=== PATIENT | female | born 1935 | race Caucasian/White ===

== ENCOUNTER 2019-11-16 22:49 | Inpatient (IN) | payer MEDICARE, SELFPAY ==
--- NOTE | ~2019-11-16 | US_ITS ---
EXAMINATION: US paracentesis abd w/image DATE: 11/20/2019 15:10 INDICATION: Ascites. TECHNIQUE: The procedure and its risks, benefits, and alternatives were discussed with the patient. P otential risks discussed included bleeding and infection. The skin was prepped and draped in sterile fashion. 1% lidocaine was used for local anesthesia. Under ultrasound guidance, a 5 Fr catheter with trochar was advanced into the ascites in the right lower quadrant. Fluid was aspirated. The catheter was removed, and a dressing was applied. There were no immediate complications. FINDINGS: Ultrasound images demonstrate ascites and the catheter within the fluid. IMPRESSION: 1. Successful ultrasound-guided paracentesis yielding 60 mL of clear, pale yellow fluid. Reviewed, dictated and finalized at location A. TENDER IMPRESSION: 1. Successful ultrasound-guided paracentesis yielding 60 mL of clear, pale yel low fluid.
--- NOTE | ~2019-11-16 | XR_ITS ---
XR chest 2V 11/16/2019 23:47 Indication: Postthoracentesis. Evaluate for pneumothorax. Procedure: AP and lateral views of the chest Comparison: Comparison to multiple prior studies sequentially, with oldest reviewed study dated 07/08. Findings: Persistent moderate right pleural effusion. Right basilar airspace disease. No pneumothorax . Cardiomegaly. Left lung clear. No acute osseous abnormality. Impression: 1: Moderate right pleural effusion without evidence for pneumothorax postthoracentesis. Reviewed, dictated and finalized at location A. EDO WORKER Impression: 1: Moderate right pleural effusion without evidence for pneumothorax postthorac entesis.
--- NOTE | ~2019-11-16 | US_ITS ---
EXAMINATION: US venous doppler LE EXAM DATE: 11/18/2019 13:47 INDICATION: Bilateral leg swelling. TECHNIQUE: Multiple grayscale, color flow and Doppler images of the lower extremity deep venous syste ms bilaterally were obtained and reviewed. Comparison is made to prior examination from 07/19/2016. FINDINGS: Right side: The right common femoral, femoral and profunda veins demonstrate normal color flow, respi ratory variation, augmentation and compressibility. Compressibility, color flow confirmed within the right popliteal, posterior tibial, peroneal, and greater saphenous veins. Left side: The left common femoral, femoral and profunda veins demonstrate normal color flow, respira tory variation, augmentation and compressibility. Compressibility, color flow confirmed within the l eft popliteal, posterior tibial, peroneal, and greater saphenous veins. IMPRESSION: 1. No lower extremity deep venous thrombosis bilaterally. Reviewed, dictated and finalized at location A. PROFESSIONAL
--- NOTE | ~2019-11-16 | US_ITS ---
EXAMINATION: US thoracentesis DATE: 11/19/2019 14:20 INDICATION: pleural effusion TECHNIQUE: The procedure and its risks, benefits, and alternatives were discussed with the patient. P otential risks discussed included bleeding, infection, and pneumothorax. The patient understood the r isks and agreed to proceed. The skin was prepped and draped in sterile fashion. 1% lidocaine was used for local anesthesia. Under ultrasound guidance, a 5 Fr catheter with trochar was advanced into the right pleural effusion. Fluid was aspirated. The catheter was removed, and a dressing was applied. Th ere were no immediate complications. FINDINGS: Ultrasound images demonstrate a right pleural effusion and the catheter within the fluid. IMPRESSION: 1. Successful ultrasound-guided thoracentesis yielding 1000 mL of yellow fluid. Reviewed, dictated and finalized at location A. D DANCE HALL IMPRESSION: 1. Successful ultrasound-guided thoracentesis yielding 1000 mL of yellow fluid .
--- NOTE | ~2019-11-16 | CT_ITS ---
EXAMINATION: CT brain wo con DATE: 11/16/2019 23:42 INDICATION: Status post all with head trauma. Headache. TECHNIQUE: Computed tomography (CT) of the head was performed without intravenous contrast. The dose- length product was 605.33 mGy-cm. The mA was adjusted according to patient size. Iterative reconstruc tion technique was employed. COMPARISON: No prior studies for comparison. FINDINGS: The limited by motion artifact. Mild generalized atrophy. There are scattered moderate david ventricular and subcortical white matter changes, most likely related to small vessel ischemic diseas e (microangiopathy). No ventriculomegaly or midline shift. Basilar cisterns are patent. There is intr acranial atherosclerosis. Probable chronic left lacunar infarction. Paranasal sinuses and mastoids ar e pneumatized. No depressed skull fractures. IMPRESSION: 1. No acute intracranial abnormality. Reviewed, dictated and finalized at location A. ONE BREAKER
--- NOTE | ~2019-11-16 | XR_ITS ---
EXAMINATION: XR lumbar spine 2-3V DATE: 11/20/2019 15:11 INDICATION: Low back pain. Fall. TECHNIQUE: 3 views of lumbar spine were obtained. COMPARISON: CT abdomen and pelvis 09/26/2018 FINDINGS: There is 6 degrees dextrocurvature of thoracolumbar spine. There is 3 mm anterolisthesis of L4 on L5. Vertebral body heights are normal. There is moderately decreased disc height at T12-L1, mi ldly decreased disc height at L3-L4 and L4-L5, and severely decreased disc height at L5-S1. There is multilevel facet joint osteoarthritis, severe bilaterally at L4-L5 and L5-S1. There is a filter in th e inferior vena cava. There are bilateral hip arthroplasties. IMPRESSION: 1. Severe lower lumbar spondylosis. Reviewed, dictated and finalized at location A. SHER AND BUFFER
--- NOTE | ~2019-11-16 | XR_ITS ---
EXAMINATION: XR chest 1V portable DATE: 11/20/2019 17:23 INDICATION: Shortness of breath. Hypoxia. TECHNIQUE: frontal view of the chest was obtained. COMPARISON: Chest radiograph dated 11/19/2019 FINDINGS: Is rotated towards the right. No significant interval change in opacification of the right mid and lo wer lung zones consistent with moderate to large right pleural effusion and associated compressive at electasis. Left lung remains clear. No pneumothorax, pulmonary edema or left-sided pleural effusion. Heart size is normal. Calcified mediastinal lymph nodes consistent with old granulomatous disease. At herosclerotic aorta. IVC filter projects along the right side of the mid lumbar spine. IMPRESSION: 1. No significant change in a moderate to large right pleural effusion with adjacent right basilar op acities, most likely atelectasis. Reviewed, dictated and finalized at location A. CE TECHNOLOGIST IMPRESSION: 1. No significant change in a moderate to large right pleural effusion with adj acent right basilar opacities, most likely atelectasis.
--- NOTE | ~2019-11-16 | XR_ITS ---
US thoracentesis, XR chest 2V EXAMINATION: US thoracentesis, XR chest 2V DATE: 11/17/2019 13:59 STARCHER AND TENTER RANGE FEEDER INDICATION: Right pleural effusion TECHNIQUE: Survey imaging of the right chest was performed. The procedure for ultrasound-guided thor acentesis and its risk and benefits were discussed with the patient. Risks included but were not limi connie to pain, bleeding, pneumothorax and infection. The patient verbalized understanding and provided written consent. A time-out was performed to document the patient's name, date of , and site of procedure. [facility] and draped in usual sterile fashion. 1% lidocaine was used for local anesthe [place]. Utilizing ultrasound guidance, a 5 Indonesian was advanced into pleural fluid. Aspiration was perf ormed. The patient tolerated procedure without immediate complication. Sterile bandages were applied over t he aspiration site(s).] FINDINGS: 1000 cc of debra-colored fluid obtained without complication. Post procedure chest x-ray de monstrates large right and small left pleural effusions. No evidence for pneumothorax. There is right -sided airspace consolidation, atelectasis versus pneumonia. IMPRESSION: 1. Successful ultrasound-guided right thoracentesis. 1000 cc of debra color fluid obtained without c omplication. 2: No pneumothorax identified post procedure. 3: Large right and small left pleural effusions. 4: Right-sided airspace consolidation, atelectasis versus pneumonia. Reviewed, dictated and finalized at location A. CHER AND TENTER RANGE FEEDER IMPRESSION: 1. Successful ultrasound-guided right thoracentesis. 1000 cc of debra color fl uid obtained without complication. 2: No pneumothorax identified post procedure. 3: Large right and small left pleural effusions. 4: Right-sided airspace consolidation, atelectasis versus pneumonia.
--- NOTE | ~2019-11-16 | CT_ITS ---
EXAMINATION: CT chest high resolution wo co DATE: 11/19/2019 14:01 INDICATION: persistent pleural effusion TECHNIQUE: Computed tomography (CT) of the chest was performed without intravenous contrast. Addition al 3D reconstructions utilizing coronal maximum intensity projection (MIP) were performed. Automated exposure control and iterative reconstruction technique were employed. The dose-length product was 18 4.88 mGy-cm. COMPARISON: 02/03/2017 FINDINGS: Moderate to large posteriorly layering right pleural effusion. There is partial collapse of the right middle and basilar right lower lobe with volume loss evidenced by crowded air bronchograms. Similar configuration of an additional bandlike region of atelectasis/scarring with volume loss and usability architect ural distortion within the anterior segment of the right upper lobe. Tiny left pleural effusion and m inimal lingular atelectasis. No pulmonary edema. Heart size is normal. Extensive atherosclerotic dorita nary artery calcifications. Aortic valve calcification. Additional atherosclerotic calcific changes a long the normal caliber thoracic aorta and great vessels arising from the arch. Several calcified med iastinal lymph nodes consistent with old granulomatous disease. No pathologically enlarged thoracic l ymphadenopathy. Nodular cirrhotic liver with moderate amount of ascites in the upper abdomen. Numerou s splenic calcifications consistent with old granulomatous disease. Multiple small calcified gallston es layering in the dependent aspect of the decompressed gallbladder. Mild upper to moderate lower tho racic spondylosis. IMPRESSION: 1. Moderate to large right and tiny left pleural effusions. 2. Partial collapse of the right middle and lower lobes and relatively stable appearance of a curved bandlike region of likely chronic atelectasis/scarring in the anterior segment of the right upper lob e. 3. Cirrhosis with moderate amount of ascites in the upper abdomen. 4. Cholelithiasis. Reviewed, dictated and finalized at location A. ISION MECHANIC IMPRESSION: 1. Moderate to large right and tiny left pleural effusions. 2. Partial collapse of the right middle and lower lobes and relatively stable a ppearance of a curved bandlike region of likely chronic atelectasis/scarring in the anterior segment of the right upper lobe. 3. Cirrhosis with moderate amount of ascites in the upper abdomen. 4. Cholelithiasis.
--- NOTE | ~2019-11-16 | XR_ITS ---
EXAMINATION: XR chest 2V DATE: 11/19/2019 14:06 INDICATION: Right pleural effusion status post thoracentesis. TECHNIQUE: Frontal and lateral views of the chest were obtained. COMPARISON: Chest single view 11/18/2019 FINDINGS: There is a moderate-sized right pleural effusion. There is a small left pleural effusion. T here are airspace opacities at right lung base. No pneumothorax. The heart size is normal. IMPRESSION: 1. Moderate-sized right pleural effusion with improvement status post thoracentesis. Small left pleur al effusion. 2. Airspace opacities at right lung base, likely atelectasis. Reviewed, dictated and finalized at location A. OMETRICS PROFESSOR IMPRESSION: 1. Moderate-sized right pleural effusion with improvement status post thoracent esis. Small left pleural effusion. 2. Airspace opacities at right lung base, likely atelectasis.
--- NOTE | ~2019-11-16 | XR_ITS ---
EXAMINATION: XR chest 1V portable EXAM DATE: 11/18/2019 09:14 INDICATION: Right pleural effusion. TECHNIQUE: Portable AP frontal chest x-ray was obtained. Comparison is made to prior examination from 11/17/2019. FINDINGS: There is large right pleural effusion with adjacent airspace disease, at least partly lower and middle lobe compressive atelectasis, collapse. Underlying pneumonia or cancer not excludable. Le ft lung is clear. No evidence of pneumothorax. Cardiomediastinal silhouette is normal. There is aorti c arterial sclerosis. The bones are osteopenic. There are bony degenerative changes. Compared to prior study from yesterday, pleural effusion has probably increased in size. IMPRESSION: 1. Large right pleural effusion, adjacent multilobar atelectasis. 2. Underlying pneumonia or cancer not excludable. Reviewed, dictated and finalized at location A. HEATER MECHANIC
--- NOTE | ~2019-11-16 | XR_ITS ---
XR pelvis 1-2V 11/16/2019 23:47 Indication: Status post fall. Low back pain. Procedure: AP view of the pelvis Comparison: Comparison to multiple prior studies sequentially, with oldest reviewed study dated 02/2012. Findings: Pelvic rings are intact. There are bilateral hip arthroplasties. There is an IVC filter par tially visualized. No acute fracture or traumatic malalignment. Impression: 1: No acute fracture. Reviewed, dictated and finalized at location A. CING ARTIST Impression: 1: No acute fracture.
[2019-11-16 22:41] VITALS: BP 161/74; PULSE 86; RESP 20; TEMP 36.8; O2SAT 87
[2019-11-16 22:46] VITALS: O2SAT 98
--- NOTE | 2019-11-16 23:14 | ED.FALL ---
HPI - Fall General Chief Complaint: Fall Stated Complaint: fall Time Seen by Provider: 11/16/19 23:02 Source: patient, RN notes reviewed and other (friend) Mode of arrival: EMS Limitations: no limitations History of Present Illness HPI Narrative: The pt is an 84 y/o female who presents to the ED, via EMS, with c/o a recent fall that occurred tonight. The pt states that she was taking her shirt off and fell backwards. She hit her bottom and the back of her head during the fall and states that she believes she lost her footing. Per friend, the pt fell the same way 10 days ago while walking from the kitchen to the bedroom. The pt reports buttocks pain, but denies dizziness, back pain, weakness, or SOB. Although she denies SOB, she notes that she has not been able to walk as much as nml because of her lungs. Per friend, the pt usually has a thoracentesis every 3 months for fluid build up. MD complaint: fall Onset (ago): hour(s) (occurred tonight) Fall from: standing Associated symptoms (after fall): other (buttocks pain) Related Data Home Medications Medication Instructions Recorded Confirmed aliskiren [Tekturna] 150 mg PO DAILY 11/16/19 11/17/19 atorvastatin 20 mg PO DAILY 11/16/19 11/17/19 diltiazem HCl 240 mg PO DAILY 11/16/19 11/17/19 famotidine 20 mg PO DAILY 11/16/19 11/17/19 insulin glargine [Basaglar KwikPen 10 unit SUBCUT HS 11/16/19 11/17/19 U-100 Insulin] levothyroxine 112 mcg PO DAILY 11/16/19 11/17/19 Calcium 500 1,000 mg PO DAILY 11/17/19 11/17/19 bromfenac [Prolensa] 0.07 % RIGHTEYE DAILY 11/17/19 11/17/19 cholecalciferol (vitamin D3) 2,000 unit PO DAILY 11/17/19 11/17/19 [Vitamin D3] fluoxetine 20 mg PO DAILY 11/17/19 11/17/19 furosemide 40 mg PO DAILY 11/17/19 11/17/19 loteprednol etabonate [Lotemax] 0.5 % RIGHTEYE TID 11/17/19 11/17/19 potassium chloride 20 meq PO DAILY 11/17/19 11/17/19 ranitidine HCl 150 mg PO BID 11/17/19 11/17/19 Allergies Allergy/AdvReac Type Severity Reaction Status Date / Time MARYSE Inhibitors Allergy Anaphylaxis Verified 11/16/19 22:54 codeine Allergy Rash Verified 11/16/19 22:54 Review of Systems Review of Systems: All systems reviewed & are unremarkable except as noted in HPI and below Constitutional: Constitutional: Denies weakness Respiratory: Respiratory: Denies dyspnea Musculoskeletal: Musculoskeletal: Denies back pain and Reports other (buttocks pain) Neurologic: Denies dizziness PMFSH Past Medical History Medical History A-fib CHF (congestive heart failure) Surgical History Surgical History No pertinent past surgical history Social History Social History Smoking status: Never smoker Second hand tobacco smoke exposure: No Alcohol intake: never Substance use: never Substance use type: does not use Gender identity (if verbalized by the patient): Female Spiritual care concerns: No Agree to blood products: No Exam Const: General: no acute distress and other (thin, frail, elderly) HENMT: Mouth: Yes lip normal and Yes moist mucous membranes Other: swelling and tenderness of posterior scalp Eyes: Conjunctivae: conjunctivae normal Pupils: Equal, round and reactive pupils present Resp: Effort & Inspection: normal respiratory effort Other: decreased breath sounds on rt side Cardio: Rate: regular rate Rhythm: regular rhythm GI: GI Palp: Yes Soft to palpation and No Tenderness to palpation present (GI) Auscultation: normal bowel sounds Back/Spine/Pelvis: Back: other (full ROM, no tenderness through spine) Skin: General skin exam: normal color, dry skin and other (warm) Neuro: General: patient oriented x3 Speech: normal speech Extrem: General: full ROM and edema (2+ pitting edema to BLE) Psych: Mental Status: mental status grossly normal Affect: normal affect Course Cons
--- NOTE | 2019-11-16 23:20 | ECG_ITS ---
Measurements Intervals [place] Rate: 81 P: MI: 0 QRS: 66 QRSD: 92 T: 120 QT: 368 QTc: 429 Interpretive Statements ATRIAL FIBRILLATION LOW QRS VOLTAGE IN LIMB LEADS CANNOT RULE OUT SEPTAL INFARCT, AGE INDETERMINATE NONSPECIFIC ST & T-WAVE ABNORMALITY- INF/LAT LEADS BASELINE ARTIFACT- I, III, AVR, AVL, AVF, V1, V3-V6 ABNORMAL ECG Electronically Signed On 11-17-2019 8:03:48 REPTILE KEEPER by Ariel Carrillo D.O.
[2019-11-16 23:32] LABS: Basophils Percent Auto 0.2 % (0.2-1.2); Eosinophils Absolute Auto 0.1 K/mm3 (0-0.3); Eosinophils Percent Auto 0.7 % (0-4.4); Hematocrit 38.7 % (37.0-47.0); Hemoglobin 11.8 g/dL (12.0-15.0); Immature Granulocyte Absolute 0.05 K/mm3 (0.00-0.031); Immature Granulocyte Percent A 0.6 % (0-0.5); Lymphocytes Absolute Auto 1.14 K/mm3 (0.9-3.2); Lymphocytes Percent Auto 12.9 % (18.3-44.2); Mean Corpuscular HGB Conc 30.5 g/dl (32-36); Mean Corpuscular Hemoglobin 29.9 pg (26-34); Mean Platelet Volume 11.4 fl (7.4-10.4); Monocytes Percent Auto 11.6 % (2.6-8.5); Neutrophils Absolute Auto 6.6 K/mm3 (1.3-6.7); Platelet Count Result 167 k/mm3 (150-375); Red Blood Count 3.95 M/mm3 (4.2-5.4); Red Cell Distribution Width 15.6 % (11.5-14.5); White Blood Count 8.9 K/mm3 (4.5-10.0)
[2019-11-16 23:47] LABS: Blood Urea Nitrogen 32 mg/dL (7-17); Calcium 9.1 mg/dL (8.4-10.2); Carbon Dioxide 28 mmol/L (22-30); Chloride 98 mmol/L (98-107); Estimated Glomerular Filt Rate 39; Glucose 209 mg/dL (65-105); Potassium 5.1 mmol/L (3.4-5.0); Sodium 137 mmol/L (137-145)
[2019-11-16 23:49] LABS: Prothrombin Time 12.6 Seconds (11.1-14.7)
[2019-11-16 23:50] LABS: Partial Thromboplastin Time 27.6 SECONDS (22.3-36.8)
[2019-11-16 23:58] LABS: NT Pro B Type Natriuretic Pept 881 PG/ML (5-100); Troponin I < 0.012 ng/mL (0.000-0.034)
[2019-11-17] VITALS (24 sets, daily range): BP systolic 102–178; BP diastolic 56–97; PULSE 72–102; RESP 16–30; TEMP 35.9–37.2; O2SAT 87–100; BMI 24.4
--- NOTE | 2019-11-17 02:01 | PC.NURSE ---
Patient's friend left efren Burnett [phone] Daughter (lives in [place]) [phone]
--- NOTE | 2019-11-17 02:14 | PC.NURSE ---
Addendum entered by REED Mckenna 11/17/19 02:19: Dr. Vann. explained to pt to not sit up on the side of bed without assistance or to get out of bed on her own, call light was placed on her lap. Original Note: pt called out stating she felt she was going to fall out of bed. Tech arrived to room with pt sitting up in bed with her legs dangling, pt stated the dr sat her up like that. pt placed fully back into the bed with side rails up.
--- NOTE | 2019-11-17 02:31 | PC.NURSE ---
Patient's daughter Bernardino notified of patient's transport to floor and room number 241.
--- NOTE | 2019-11-17 02:43 | PM.IMHP ---
H&P: HPI History of Present Illness Chief complaint: acute respiratory failure with hypoxia pleural eff Narrative: This is an 84-year-old diabetic female with known history of recurrent right-sided pleural effusions for which she obtains therapeutic thoracentesis every 3 months for the past year. She presented to the [facility] after suffering an acute fall at home tonight. The patient is known to live alone and states that she was getting changed for bed tonight when she lost her balance fell backwards and landed on her bottom. She did hit the back of her head on the ground but did not pass out. She sat on the floor and called her friend. They ended up calling EMS and she was brought to the hospital for evaluation. The patient herself is a very poor historian cannot tell me why she gets a therapeutic thoracentesis every 3 months. It appears that she has chronic anasarca for an unknown reason. The only thing she can tell me is that she know she sees a specialist at [facility] but cannot tell me what kind of specialist. She denies any history of previous cancer, liver disease, nephrotic syndrome, or previous kidney disorders. Patient knows that she is diabetic but she cannot tell me any other medical conditions that she is known to have. She denies any history of heart disease or strokes. The patient was evaluated emergency room this evening routine x-rays were obtained which were unremarkable for any acute fractures. Brain CT was obtained which was unremarkable for acute intracranial pathology. While in the emergency room the patient did desaturate down to 80% on room air and required oxygen supplementation. The patient tells me she was supposed to follow-up with a doctor whom she does not remember the name of tomorrow to evaluate her for another thoracentesis. We been asked to admit the patient to the hospital for her acute hypoxic respiratory failure. On further questioning the patient denies any headache, fevers, chills, sore throat, chest pain, abdominal pain, nausea, vomiting, dysuria, hematuria, rectal bleeding, diarrhea, or focal neurological symptoms. She does admit that she feels somewhat short of breath tonight. No other complaints. Review of Systems Review of Systems: All systems reviewed & are unremarkable except as noted in HPI and below [facility] Past Medical History Medical History (Updated 11/17/19 @ 15:54 by Ruthie Aguirre MD) A-fib Aplastic anemia Autoimmune hepatitis CHF (congestive heart failure) Chronic hypertension CKD (chronic kidney disease) stage 3, GFR 30-59 ml/min Diabetes mellitus History of DVT (deep vein thrombosis) Shortness of Breath Surgical History Surgical History No pertinent past surgical history Social History Social History Smoking status: Never smoker Second hand tobacco smoke exposure: No Alcohol intake: never Substance use: never Substance use type: does not use Gender identity (if verbalized by the patient): Female Spiritual care concerns: No Agree to blood products: No Meds Home Medications and Allergies Home Medications Medication Instructions Recorded Confirmed Type aliskiren [Tekturna] 150 mg PO DAILY 11/16/19 11/17/19 History atorvastatin 20 mg PO DAILY 11/16/19 11/17/19 History diltiazem HCl 240 mg PO DAILY 11/16/19 11/17/19 History famotidine 20 mg PO DAILY 11/16/19 11/17/19 History insulin glargine [Basaglar KwikPen 10 unit SUBCUT HS 11/16/19 11/17/19 History U-100 Insulin] levothyroxine 112 mcg PO DAILY 11/16/19 11/17/19 History Calcium 500 1,000 mg PO DAILY 11/17/19 11/17/19 History bromfenac [Prolensa] 1 drp RIGHTEYE DAILY 11/17/19 11/17/19 History cholecalciferol (vitamin D3) 2,000 unit PO DAILY 11/17/19 11/17/19 History [Vitamin D3] fluoxetine 20 mg PO DAILY 11/17/19 11/17/19 History furosemide 40 mg PO DAILY
--- NOTE | 2019-11-17 03:06 | ADMGEN ---
This patient, Coleen Wu, was admitted to 2 Medical Room 241-. Patient/family oriented to hospital policies and general routines including ID bracelet, bed and alarms, visiting hours, pain management, procedures, bathroom and other care routines, personal items, smoking policy, room service/diet, and visiting hours. Valuables list has been completed. Information on how to activate the Rapid Response Team has been discussed. Patient/Family are encouraged to report perceived risks to care and to ask questions if they do not understand what they are told or what they should do.
[2019-11-17 05:55] LABS: Basophils Percent Auto 0.1 % (0.2-1.2); Eosinophils Percent Auto 0.3 % (0-4.4); Hematocrit 32.3 % (37.0-47.0); Hemoglobin 9.9 g/dL (12.0-15.0); Immature Granulocyte Absolute 0.04 K/mm3 (0.00-0.031); Immature Granulocyte Percent A 0.6 % (0-0.5); Lymphocytes Absolute Auto 0.39 K/mm3 (0.9-3.2); Lymphocytes Percent Auto 5.5 % (18.3-44.2); Mean Corpuscular HGB Conc 30.7 g/dl (32-36); Mean Corpuscular Hemoglobin 30.1 pg (26-34); Mean Corpuscular Volume 98.2 fl (80-100); Mean Platelet Volume 11.9 fl (7.4-10.4); Monocytes Absolute Auto 0.9 K/mm3 (0.1-0.6); Monocytes Percent Auto 12.1 % (2.6-8.5); Neutrophils Absolute Auto 5.8 K/mm3 (1.3-6.7); Neutrophils Percent Auto 81.4 % (45.5-73.1); Platelet Count Result 97 k/mm3 (150-375); Red Blood Count 3.29 M/mm3 (4.2-5.4); Red Cell Distribution Width 15.5 % (11.5-14.5); White Blood Count 7.1 K/mm3 (4.5-10.0)
[2019-11-17] MEDS: LEVOTHYROXINE SODIUM 112 MCG TABLET PO (06:11)
[2019-11-17 06:23] LABS: Blood Urea Nitrogen 28 mg/dL (7-17); Calcium 8.4 mg/dL (8.4-10.2); Carbon Dioxide 27 mmol/L (22-30); Chloride 100 mmol/L (98-107); Estimated CRCL calculation 27 ml/min; Estimated Glomerular Filt Rate 47; Glucose 178 mg/dL (65-105); Magnesium 1.9 mg/dL (1.6-2.3); Potassium 4.4 mmol/L (3.4-5.0); Sodium 136 mmol/L (137-145)
[2019-11-17] MEDS: LORAZEPAM INJ 2 MG/ML VIAL 0.5 MG IV PUSH (06:34)
--- NOTE | 2019-11-17 07:17 | PC.NURSE ---
pt transferred to IMU per Getin orders
--- NOTE | 2019-11-17 08:01 | PC.NURSE ---
Patient admitted to [facility]- from room 241 at 0703.
[2019-11-17 08:02] LABS: Base Excess ABG -0.6 mEq/l (+/-2.0); Fractional Inspired Oxygen 50 %; HCO3 ABG 23.6 mEq/l (22.0-26.0); Oxygen Content ABG 14.8 %vol (16.0-22.0); Oxygen Saturation ABG 98.8 % (95.0-100.0); Oxyhemoglobin 97.2 % THb (90.0-100.0); PCO2 ABG 37.2 mmHg (35.0-45.0); PO2 ABG 136.7 mmHg (80.0-100.0); PO2 FiO2 Ratio Arterial Blood 2.73 %; Total Hemoglobin 10.6 g/dL (12.0-18.0); pH ABG 7.421 (7.350-7.450)
[2019-11-17 08:03] LABS: Device NON-INVASIVE VENT
[2019-11-17 08:04] LABS: Non-Invasive Expiratory Pressure 6 CMH2O; Non-Invasive Inspiratory Pressure 12 CMH2O; Non-Invasive Vent Rate 14 /MIN; Site Drawn RIGHT RADIAL
[2019-11-17 08:17] LABS: Lactate Dehydrogenase 548 U/L (313-618)
[2019-11-17 08:24] LABS: Glucose Point of Care 162 (65-105)
--- NOTE | 2019-11-17 09:19 | PM.IMPN ---
Progress Note: A&P Assessment and Plan (1) Acute respiratory failure with hypoxia: Code(s): J96.01 - Acute respiratory failure with hypoxia Status: Acute Assessment and Plan: [place] to be secondary to large right-sided pleural effusion BiPAP for comfort for today but can be off BiPAP during the day with supplemental O2 as needed to keep O2 saturations > 94%. Continuous pulse ox. (2) Pleural effusion, right: Code(s): J90 - Pleural effusion, not elsewhere classified Status: Acute Assessment and Plan: Recurring pleural effusion likely transudative secondary to autoimmune hepatitis, CHF. Patient reports she gets thoracenteses every [address] Vann at [facility] but she cannot confirm this for me this morning. She is unsure of the specialist she sees there but stated she had a follow up appointment soon. Edit: On further review, it appears the last several thoracentesis orders are from Dr Aguirre's office. Notified Dr Aguirre of patient's admission. Last taps were 06/2019; 02/2019; 11/2018 last year, each yielding about a 1L yellow fluid. (3) CKD (chronic kidney disease) stage 3, GFR 30-59 ml/min: Code(s): N18.3 - Chronic kidney disease, stage 3 (moderate) Status: Acute Assessment and Plan: Stable based on review of old labs. Baseline Cr appears about 1.2-1.5. Will resume home lasix after thoracentesis. (4) Autoimmune hepatitis: Code(s): K75.4 - Autoimmune hepatitis Status: Acute Assessment and Plan: With esophageal varices for which she has followed with Dr Martin in the past. (5) Anemia: Qualifiers: Anemia type: unspecified type Qualified Code(s): D64.9 - Anemia, unspecified Code(s): D64.9 - Anemia, unspecified Status: Acute Assessment and Plan: History of aplastic anemia with pancytopenia and records show she has been previously followed at [facility] for this. Monitor CBC. (6) History of DVT (deep vein thrombosis): Code(s): Z86.718 - Personal history of other venous thrombosis and embolism Status: Acute Assessment and Plan: PE and DVTs in July 2016; not anticoagulated due to thrombocytopenia and aplastic anemia. Has IVC filter. IVC filter may be the cause of her LE edema? (7) Diabetes mellitus: Qualifiers: Diabetes mellitus complication status: without complication Diabetes mellitus senior care insulin use: with senior care use Diabetes mellitus type: type 2 Qualified Code(s): E11.9 - Type 2 diabetes mellitus without complications; Z79.4 - half-way (current) use of insulin Code(s): E11.9 - Type 2 diabetes mellitus without complications Status: Chronic Assessment and Plan: Blood sugars stable. Continue lantus and cover with SSI. Continue to monitor with accu-cheks and adjust treatment if needed. (8) A-fib: Qualifiers: Atrial fibrillation type: unspecified Qualified Code(s): I48.91 - Unspecified atrial fibrillation Code(s): I48.91 - Unspecified atrial fibrillation Status: Chronic Assessment and Plan: Rate controlled, continue home diltiazem. IVC filter; not on intermission coordinator anticoagulation due to thrombocytopenia. (9) Chronic hypertension: Code(s): I10 - Essential (primary) hypertension Status: Chronic Assessment and Plan: Elevated on arrival but improved this morning. Resume home antihypertensives and monitor BP. (10) CHF (congestive heart failure): Qualifiers: Heart failure chronicity: unspecified Heart failure type: unspecified Qualified Code(s): I50.9 - Heart failure, unspecified Code(s): I50.9 - Heart failure, unspecified Status: Chron
[2019-11-17] MEDS: FUROSEMIDE INJ 40 MG/4 ML VIAL 20 MG IV PUSH (11:14)
--- NOTE | 2019-11-17 11:29 | PHAR ---
HOME MED VERIFICATION PROLENSA- BROMFENAC 0.07% IN COPY LATHE TENDER BOTTLE, OK TO USE
[2019-11-17 12:49] LABS: Glucose Point of Care 130 (65-105)
[2019-11-17 14:28] LABS: pH Pleural Fluid 7.463 (7.210-7.500)
--- NOTE | 2019-11-17 14:33 | PM.PNPUL ---
Subjective Date/time seen: 11/17/19 14:33 Objective Data Vital Signs Vital Signs: Vital Signs - 24 hr 11/16/19 22:41 11/16/19 22:46 11/17/19 00:20 Temperature 36.8 C Pulse Rate 86 89 Respiratory Rate 20 18 Blood Pressure 161/74 H Pulse Oximetry 87 L 98 87 L 11/17/19 00:32 11/17/19 02:08 11/17/19 02:29 Temperature Pulse Rate 85 83 Respiratory Rate 20 18 Blood Pressure 160/72 H 156/77 H Pulse Oximetry 98 97 97 11/17/19 02:43 11/17/19 02:49 11/17/19 04:00 Temperature 37.2 C Pulse Rate 95 95 80 Respiratory Rate 20 22 H Blood Pressure 163/72 H Pulse Oximetry 95 95 11/17/19 06:00 11/17/19 06:19 11/17/19 06:39 Temperature 37.1 C 36.2 C L Pulse Rate 82 102 H 96 Respiratory Rate 20 28 H 20 Blood Pressure 133/66 178/97 H Pulse Oximetry 97 88 L 99 11/17/19 07:05 11/17/19 08:00 11/17/19 10:00 Temperature 35.9 C L Pulse Rate 88 79 79 Respiratory Rate 19 Blood Pressure 140/78 Pulse Oximetry 98 11/17/19 10:45 11/17/19 12:00 11/17/19 12:28 Temperature 36.6 C Pulse Rate 83 87 84 Respiratory Rate 17 20 Blood Pressure 139/71 Pulse Oximetry 100 98 11/17/19 13:53 11/17/19 13:54 Temperature Pulse Rate 86 90 Respiratory Rate 30 H 24 H Blood Pressure 153/83 H 157/85 H Pulse Oximetry 95 93 Intake/Output Intake/Output: Intake & Output 11/14/19 11/15/19 11/16/19 11/17/19 23:59 23:59 23:59 23:59 Intake Total 200 Output Total 1700 Balance -1500 Meds/Results Medications: Active Medications Generic Name Dose Route Start Last Admin Trade Name Freq PRN Reason Stop Dose Admin Acetaminophen 650 mg 11/17/19 02:42 Tylenol Tablet PO Q4H PRN Mild Pain (1-3) or Fever Aliskiren 150 mg 11/17/19 09:00 11/17/19 08:59 Tekturna PO Not Given DAILY [facility] Atorvastatin Calcium 20 mg 11/17/19 09:00 11/17/19 08:59 Lipitor PO Not Given DAILY [facility] Calcium Carbonate 1,000 mg 11/17/19 09:00 11/17/19 08:59 Oscal 500 Mg PO Not Given DAILY [facility] Dextrose 12.5 gm 11/17/19 02:41 Dextrose 50% Syringe IV PUSH PRN PRN Hypoglycemia Protocol Diltiazem HCl 240 mg 11/17/19 09:00 11/17/19 11:11 Cardizem Cd PO 240 mg DAILY [facility] Administration Enoxaparin Sodium 40 mg 11/17/19 09:00 11/17/19 08:59 Lovenox SUB-Q Not Given DAILY [facility] Famotidine 20 mg 11/17/19 09:00 11/17/19 09:00 Pepcid PO Not Given DAILY [facility] Fluoxetine HCl 20 mg 11/17/19 09:00 11/17/19 09:00 Prozac PO Not Given DAILY [facility] Glucagon 1 mg 11/17/19 02:41 Glucagon For Inj IM PRN PRN Hypoglycemia Protocol Glucose 15 gm 11/17/19 02:41 Glutose 15 PO PRN PRN Hypoglycemia Protocol Dextrose 1,000 mls @ 100 mls/hr 11/17/19 02:41 Dextrose 5% 1,000 Ml IVPB PRN PRN Hypoglycemia Protocol Insulin Aspart 3 - 6 units 11/17/19 08:00 11/17/19 13:33 Novolog SUB-Q Not Given TIDWM [facility] Protocol Insulin Glargine 10 units 11/17/19 21:00 Lantus SUB-Q [facility] Levothyroxine Sodium 112 mcg 11/17/19 06:30 11/17/19 06:11 Synthroid PO 112 mcg DAILY@0630 [facility] Administration Loteprednol Etabonate 1 drop 11/17/19 13:00 11/17/19 13:34 Lotemax RIGHT EYE Not Given TID [facility] Vitamin D 2,000 unit 11/17/19 09:00 11/17/19 08:59 Vitamin D PO Not Given DAILY [facility] Radiology Results: ITS Impressions Pelvis X-Ray 11/17/19 08:43 Impression: 1: No acute fracture. Head CT 11/17/19 09:33 IMPRESSION: 1. No acute intracranial abnormality. Chest X-Ray 11/17/19 13:59 IMPRESSION: 1. Successful ultrasound-guided right thoracentesis. 1000 cc of debra color fluid obtained without complication. 2: No pneumothorax identified post procedure. 3: Large right and small left pleural effusions. 4: Right-sided airspace consolidation, atelectasis versus pneumonia. Thoracentesis Ultrasound
--- NOTE | 2019-11-17 14:33 | PM.CNPUL ---
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 She is followed by EUFEMIA Diaz, for this. The pH is now normal. Cell counts are pending. She may have a traumatic effusion due to two falls. She is oxygenating adequately on 3 L/min. Deb has a history of CHF with preserved EF, has chronic leg swelling which she says is stable. Her left calf is 3 inches larger which she says is normal for her. ( Lainey thinks her leg looks worse today.) , BNP was not elevated for age only 89. She does not appear to be having CHf exacerbation. Will wait for the remainder of the labs on the pleural fluid. (2) Acute respiratory failure with hypoxia: Code(s): J96.01 - Acute respiratory failure with hypoxia Status: Acute Assessment and Plan: She has not required O2 at home. She has been tested with a 6 minute walk and overnight oximetry with low saturation but not low enough to have O2 prescribed. Now is on 3 L/min, sat 93%, which is expected to improve as the effusion 1 L removed and atelectasis improves. (3) History of DVT (deep vein thrombosis): Code(s): Z86.718 - Personal history of other venous thrombosis and embolism Status: Acute Assessment and Plan: Her calves are swollen, left several inches larger than right. Will check lower extremity dopplers to assure that she does not have DVTs now. 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 She sees EUFEMIA Diaz. She has not had any specific treatment for this. (5) Shortness of Breath: Code(s): R06.02 - Shortness of breath Status: Acute Assessment and Plan: She is less short of breath since 1 L thoracentesis Right side today, not back to baseline. Her shortness of breath is worse with exertion, worsens when effusion worsens. History of Present Illness History of Present Illness Consult date: 11/17/19 Requesting physician: Melissa Morse PA-C Reason for consult: pleural effusion Chief complaint: acute respiratory failure with hypoxia pleural eff Narrative: Coleen Wu is an 84 yo female who we follow in pulmonary clinic for a recurrent right pleural effusion due to autoimmune hepatitis with cirrhosis. She as a history of CKD, atrial fib not on anticoagulants, HTN, CHF with preserved EF, aplastic anemia which is stable. Her friend Lainey is at the bedside. Her pleural fluid has always been consistent with a transudate. She has had multiple thoracenteses in the past. She fell while she was taking off a shirt, landed backwards on her buttocks, hitting the back of her head without loss of consciousness. She came to the ER by ambulance for evaluation. Her CXR showed a large right pleural effusion which was tapped today with 1 liter of fluid removed. The pH is 7.46, remainder of the labs are pending. She does not use O2 at home, now is on nasal cannula @ 3 L/min with saturation 93%. She desaturated in the ER to 80% on room air, and O2 was started. She has had borderline low O2 saturation in the past, has not met criteria to have O2 in the home. The patient had a similar incident a few weeks ago falling to the ground.She has ecchymoses on the left posterior thigh and calf from the prior fall. She lives alone. She did not lose consciousness.
[2019-11-17 16:53] LABS: Appearance Pleural Fluid Hazy (Clear); Color Pleural Fluid Yellow (Colorless); Lymphocytes Pleural Fluid 40 %; Monocytes Pleural Fluid 24 %; Neutrophils Pleural Fluid 8 % (0-25); Nucleated Cell Pleural Fluid 98 /uL (0-1000); Pleural fluid source Pleural fluid; RBC Pleural Fluid 163 /uL (0-0)
[2019-11-17 16:54] LABS: Macrophages Pleural Fluid 28 %
[2019-11-17 18:18] LABS: Glucose Point of Care 199 (65-105)
[2019-11-17] MEDS: INSULIN GLARGINE (*BKC) 100 UNITS/ML 10 UNITS SUB-Q (20:21)
[2019-11-17 20:22] LABS: Glucose Point of Care 186 (65-105)
[2019-11-18] VITALS (15 sets, daily range): BP systolic 105–158; BP diastolic 60–77; PULSE 64–84; RESP 16–22; TEMP 36.1–36.7; O2SAT 92–99
[2019-11-18] MEDS: LEVOTHYROXINE SODIUM 112 MCG TABLET PO (05:13)
[2019-11-18 06:58] LABS: Basophils Percent Auto 0.3 % (0.2-1.2); Eosinophils Absolute Auto 0.1 K/mm3 (0-0.3); Hematocrit 39.2 % (37.0-47.0); Hemoglobin 11.8 g/dL (12.0-15.0); Immature Granulocyte Absolute 0.03 K/mm3 (0.00-0.031); Immature Granulocyte Percent A 0.4 % (0-0.5); Lymphocytes Absolute Auto 1.14 K/mm3 (0.9-3.2); Lymphocytes Percent Auto 16.5 % (18.3-44.2); Mean Corpuscular HGB Conc 30.1 g/dl (32-36); Mean Corpuscular Hemoglobin 30.4 pg (26-34); Mean Platelet Volume 12.1 fl (7.4-10.4); Monocytes Absolute Auto 0.8 K/mm3 (0.1-0.6); Monocytes Percent Auto 11.7 % (2.6-8.5); Neutrophils Absolute Auto 4.9 K/mm3 (1.3-6.7); Neutrophils Percent Auto 70.1 % (45.5-73.1); Platelet Count Result 101 k/mm3 (150-375); Red Blood Count 3.88 M/mm3 (4.2-5.4); Red Cell Distribution Width 15.5 % (11.5-14.5); White Blood Count 6.9 K/mm3 (4.5-10.0)
[2019-11-18 07:17] LABS: Albumin Level 3.6 g/dL (3.5-5.1); Blood Urea Nitrogen 21 mg/dL (7-17); Calcium 8.8 mg/dL (8.4-10.2); Carbon Dioxide 24 mmol/L (22-30); Chloride 100 mmol/L (98-107); Estimated CRCL calculation 37 ml/min; Estimated Glomerular Filt Rate > 60; Glucose 116 mg/dL (65-105); Phosphorus 3.6 mg/dL (2.5-4.5); Potassium 4.3 mmol/L (3.4-5.0); Sodium 135 mmol/L (137-145)
[2019-11-18 08:54] LABS: Glucose Point of Care 122 (65-105)
[2019-11-18] MEDS: CHOLECALCIFEROL 1,000 UNIT TABLET 2000 UNITS PO (09:52)
[2019-11-18] MEDS: ENOXAPARIN 40 MG/0.4 ML SYRINGE SUB-Q (09:52)
[2019-11-18] MEDS: FAMOTIDINE 20 MG TABLET PO (09:52)
[2019-11-18] MEDS: CALCIUM CARBONATE (OSCAL) 500 MG TABLET 1000 MG PO (09:53)
[2019-11-18] MEDS: FLUOXETINE HCL 20 MG CAP PO (09:53)
[2019-11-18] MEDS: ATORVASTATIN 20 MG TABLET PO (09:53)
--- NOTE | 2019-11-18 10:51 | PHAR ---
Home medication Tekturna 150mg tablets identified and returned to IMU nursing unit
[2019-11-18] MEDS: LOTEPREDNOL ETABONATE 0.5% OPH 5 ML BOTTLE 1 DROP RIGHT EYE ×2 (12:42→16:40)
[2019-11-18] MEDS: ACETAMINOPHEN 325 MG TABLET 650 MG PO (12:47)
--- NOTE | 2019-11-18 12:51 | PM.IMPN ---
Progress Note: A&P Assessment and Plan (1) Acute respiratory failure with hypoxia: Code(s): J96.01 - Acute respiratory failure with hypoxia Status: Acute Assessment and Plan: [place] to be secondary to large right-sided pleural effusion Off BiPAP now and comfortably tolerating room air. Transfer out of IMU. Can use BiPAP at night for comfort if needed. Continue supplemental O2 as needed and wean to keep O2 saturations > 94%. (2) Pleural effusion, right: Code(s): J90 - Pleural effusion, not elsewhere classified Status: Acute Assessment and Plan: Recurring pleural effusion likely transudative secondary to autoimmune hepatitis, CHF, CKD. She gets therapeutic thoracenteses every few months with Dr Aguirre. Thoracentesis 11/17/19 yielded 1 L hazy yellow fluid, pleural pH is normal. (3) CKD (chronic kidney disease) stage 3, GFR 30-59 ml/min: Code(s): N18.3 - Chronic kidney disease, stage 3 (moderate) Status: Acute Assessment and Plan: Stable based on review of old labs. Baseline Cr appears about 1.2-1.5. Monitor renal function. (4) Autoimmune hepatitis: Code(s): K75.4 - Autoimmune hepatitis Status: Acute Assessment and Plan: With esophageal varices for which she has followed with Dr Martin in the past. Likely contributes to above. (5) Anemia: Qualifiers: Anemia type: unspecified type Qualified Code(s): D64.9 - Anemia, unspecified Code(s): D64.9 - Anemia, unspecified Status: Acute Assessment and Plan: History of aplastic anemia with pancytopenia and records show she has been previously followed at [facility] for this. Monitor CBC. (6) History of DVT (deep vein thrombosis): Code(s): Z86.718 - Personal history of other venous thrombosis and embolism Status: Acute Assessment and Plan: PE and DVTs in July 2016; not anticoagulated due to thrombocytopenia and aplastic anemia. Has IVC filter. IVC filter may be the cause of her LE edema? US venous Dopplers ordered. (7) Diabetes mellitus: Qualifiers: Diabetes mellitus complication status: without complication Diabetes mellitus intermodal truck driver insulin use: with custodial use Diabetes mellitus type: type 2 Qualified Code(s): E11.9 - Type 2 diabetes mellitus without complications; Z79.4 - emt intermediate (current) use of insulin Code(s): E11.9 - Type 2 diabetes mellitus without complications Status: Chronic Assessment and Plan: Blood sugars stable. Continue lantus and cover with SSI. Continue to monitor with accu-cheks and adjust treatment if needed. (8) A-fib: Qualifiers: Atrial fibrillation type: unspecified Qualified Code(s): I48.91 - Unspecified atrial fibrillation Code(s): I48.91 - Unspecified atrial fibrillation Status: Chronic Assessment and Plan: Rate controlled, continue home diltiazem. IVC filter; not on intermodal truck driver anticoagulation due to thrombocytopenia. (9) Chronic hypertension: Code(s): I10 - Essential (primary) hypertension Status: Chronic Assessment and Plan: Blood pressures have been variable. Continue home antihypertensives and monitor BP. (10) CHF (congestive heart failure): Qualifiers: Heart failure chronicity: unspecified Heart failure type: unspecified Qualified Code(s): I50.9 - Heart failure, unspecified Code(s): I50.9 - Heart failure, unspecified Status: Chronic Assessment and Plan: Chronic, diastolic. Continue lasix and tekturna. History of angioedma from ACEI. Monitor fluid status with I&Os and daily weights. (11) DVT prophylaxis: Code(
[2019-11-18 13:32] LABS: Glucose Point of Care 163 (65-105)
[2019-11-18 16:40] LABS: Glucose Point of Care 168 (65-105)
[2019-11-18] MEDS: POTASSIUM CHLORIDE 10 MEQ TABLET.ER 20 MEQ PO (16:41)
[2019-11-18] MEDS: FUROSEMIDE 40 MG TABLET PO (16:50)
--- NOTE | 2019-11-18 17:58 | PM.PNPUL ---
Progress Note: A&P Assessment and Plan (1) Pleural effusion, right: Code(s): J90 - Pleural effusion, not elsewhere classified Status: Acute Assessment and Plan: She has had recurrent pleural effusion in the right due to autoimmune hepatitis with cirrhosis. She is followed by EUFEMIA Diaz, for this. The pH is now normal. Small elevation in rbc count. She is oxygenating adequately on 2 L/min. Has hx CHF with preserved EF, has chronic leg swelling which she says is stable. BNP was not elevated for age only 89. She does not appear to be having CHf exacerbation. Will wait for the remainder of the labs on the pleural fluid. (2) Acute respiratory failure with hypoxia: Code(s): J96.01 - Acute respiratory failure with hypoxia Status: Acute Assessment and Plan: She has not required O2 at home. She has been tested with a 6 minute walk and overnight oximetry with low saturation but not low enough to have O2 prescribed. Now is on 3 L/min, sat 93%, which is expected to improve as the effusion 1 L removed and atelectasis improves. (3) History of DVT (deep vein thrombosis): Code(s): Z86.718 - Personal history of other venous thrombosis and embolism Status: Acute Assessment and Plan: Her calves are swollen, left several inches larger than right. Nov 18- negative LE dopplers. 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 She sees EUFEMIA Diaz. She has not had any specific treatment for this. (5) Shortness of Breath: Code(s): R06.02 - Shortness of breath Status: Acute Assessment and Plan: She is less short of breath since 1 L thoracentesis Right side Feb 2; not back to baseline. Her shortness of breath is worse with exertion, worsens when effusion increases. Subjective Date/time seen: 11/18/19 17:58 Coleen Wu is an 84 yo female followed in our pulmonary clinic for a recurrent right pleural effusion due to autoimmune hepatitis with cirrhosis. She as a history of CKD, atrial fib not on anticoagulants, HTN, CHF with preserved EF, aplastic anemia which is stable. Her pleural fluid has always been consistent with a transudate. She has had multiple thoracenteses in the past. She is better and is moving to 3rd floor today. Admitted Feb 2 - fell, landed backwards on her buttocks, hit back of head; CXR large R pleural effusion Feb 2; 1 L with pH 7.46. She does not use O2 at home, now is on nasal cannula @ 2 L/min with saturation 93%. On admission, had low sat in ER to 80% on room air, and O2 was started. She has had borderline low O2 saturation in the past, has not met criteria to have O2 in the home. Feb 3 - LE dopplers (-) for DVT in legs The patient had a similar incident a few weeks ago falling to the ground.She has ecchymoses on the left posterior thigh and calf from the prior fall. She lives alone. She did not lose consciousness. Review of Systems Cardiovascular: Cardiovascular: Reports no additional cardiovascular complaints, Reports leg edema (this is chronic, unchanged.) and Reports dyspnea Respiratory: Respiratory: Reports dyspnea Exam Narrative: Exam Narrative: Alert, pleasant, poor memory. Const: General: cooperative HENMT: Head: normal to inspection (She complains of pain on back of head; scalp is atraumatic.) Ears: hearing grossly normal bilaterally General nose exam: Normal external nose present Neck: Neck: trachea midline Chest: Chest palpation & inspection: normal
--- NOTE | 2019-11-18 19:05 | PC.NURSE ---
This patient, Coleen Wu, was transferred to [facility] on 11/18/19 at 1910. Personal belongings sent with patient. Report given to 3rd med/surgery aide. Appropriate documentation sent with patient.
[2019-11-18] MEDS: INSULIN GLARGINE (*BKC) 100 UNITS/ML 10 UNITS SUB-Q (20:37)
[2019-11-18 20:51] LABS: Glucose Point of Care 192 (65-105)
[2019-11-19] VITALS (12 sets, daily range): BP systolic 100–167; BP diastolic 55–73; PULSE 61–83; RESP 14–22; TEMP 36.5–37.2; O2SAT 90–100
[2019-11-19 06:17] LABS: Hematocrit 33.5 % (37.0-47.0); Hemoglobin 10.5 g/dL (12.0-15.0); Immature Platelet Fraction Pct 5.1 % (0.9-11.2); Mean Corpuscular HGB Conc 31.3 g/dl (32-36); Mean Corpuscular Hemoglobin 30.2 pg (26-34); Mean Corpuscular Volume 96.3 fl (80-100); Platelet Count Result 97 k/mm3 (150-375); Red Blood Count 3.48 M/mm3 (4.2-5.4); Red Cell Distribution Width 15.1 % (11.5-14.5); White Blood Count 4.5 K/mm3 (4.5-10.0)
[2019-11-19 06:26] LABS: Blood Urea Nitrogen 22 mg/dL (7-17); Calcium 8.5 mg/dL (8.4-10.2); Carbon Dioxide 32 mmol/L (22-30); Chloride 102 mmol/L (98-107); Estimated CRCL calculation 27 ml/min; Estimated Glomerular Filt Rate 47; Glucose 75 mg/dL (65-105); Potassium 3.8 mmol/L (3.4-5.0); Sodium 140 mmol/L (137-145)
[2019-11-19] MEDS: LEVOTHYROXINE SODIUM 112 MCG TABLET PO (06:47)
[2019-11-19] MEDS: ATORVASTATIN 20 MG TABLET PO (09:58)
[2019-11-19] MEDS: FAMOTIDINE 20 MG TABLET PO (10:09)
[2019-11-19] MEDS: CALCIUM CARBONATE (OSCAL) 500 MG TABLET 1000 MG PO (10:10)
[2019-11-19] MEDS: ENOXAPARIN 40 MG/0.4 ML SYRINGE SUB-Q (10:10)
[2019-11-19] MEDS: POTASSIUM CHLORIDE 10 MEQ TABLET.ER 20 MEQ PO (10:11)
[2019-11-19] MEDS: CHOLECALCIFEROL 1,000 UNIT TABLET 2000 UNITS PO (10:11)
[2019-11-19] MEDS: LOTEPREDNOL ETABONATE 0.5% OPH 5 ML BOTTLE 1 DROP RIGHT EYE ×3 (10:12→16:49)
[2019-11-19] MEDS: FLUOXETINE HCL 20 MG CAP PO (10:14)
[2019-11-19] MEDS: FUROSEMIDE 40 MG TABLET PO (10:15)
[2019-11-19 11:39] LABS: Lactate Dehydrogenase 661 U/L (313-618)
--- NOTE | 2019-11-19 12:40 | PM.IMPN ---
Progress Note: A&P Assessment and Plan (1) Acute respiratory failure with hypoxia: Code(s): J96.01 - Acute respiratory failure with hypoxia Status: Acute Assessment and Plan: -----continue to wean oxygen as tolerated tolerated. Patient has not had any hypoxia with the oxygen. She walked the halls and did not feel short of breath today. They got 1000ml with her thoracentesis /. I spoke with Dr. Aguirre and we are going to do another thoracentesis today since she still has a large pleural effusion. We will also do a CT of the chest to ensure no etiology can be found. (2) Pleural effusion, right: Code(s): J90 - Pleural effusion, not elsewhere classified Status: Acute Assessment and Plan: -----see above. Thoracentesis planned for today. CT of the chest also ordered. Patient sees Dr. Aguirre. Still waiting on some labs but thought to be due to her cirrhosis. LDH and protein pending. Cytology pending. G stain had few white blood cells and no organisms. (3) Diabetes mellitus: Qualifiers: Diabetes mellitus type: type 2 Diabetes mellitus intermodal customer service insulin use: with intermodal customer service use Diabetes mellitus complication status: without complication Qualified Code(s): E11.9 - Type 2 diabetes mellitus without complications; Z79.4 - FDC (current) use of insulin Code(s): E11.9 - Type 2 diabetes mellitus without complications Status: Chronic Assessment and Plan: -----last glucose 75. She has been NPO for her procedure. I have called her nurse and she is going to check it again to ensure no issues. Continue sliding scale insulin. (4) A-fib: Qualifiers: Atrial fibrillation type: unspecified Qualified Code(s): I48.91 - Unspecified atrial fibrillation Code(s): I48.91 - Unspecified atrial fibrillation Status: Chronic Assessment and Plan: ------Patient is not appear to be on any anticoagulation. The patient's daughter states that she 'hemorrhages out of her rectum' when on anticoagulation. We will continue the patient's diltiazem at this time . (5) Chronic hypertension: Code(s): I10 - Essential (primary) hypertension Status: Chronic Assessment and Plan: -----last blood pressure 167/73. Slightly higher than her baseline. Will continue to monitor and if she trends high we may adjust her hypertensive medications. (6) CHF (congestive heart failure): Qualifiers: Heart failure type: unspecified Heart failure chronicity: unspecified Qualified Code(s): I50.9 - Heart failure, unspecified Code(s): I50.9 - Heart failure, unspecified Status: Chronic Assessment and Plan: -----pleural effusion could be from her CHF but since it is one-sided it is less likely. No swelling in her lower extremities. Will await labs from her pleural effusion as stated above. (7) Autoimmune hepatitis: Code(s): K75.4 - Autoimmune hepatitis Status: Acute Assessment and Plan: -----with esophageal varices in the past. Could be contributing to above. Monitor. Lovenox stopped. (8) CKD (chronic kidney disease) stage 3, GFR 30-59 ml/min: Code(s): N18.3 - Chronic kidney disease, stage 3 (moderate) Status: Acute Assessment and Plan: -----pt at baseline. continue to monitor. (9) Closed head injury: Qualifiers: Encounter type: initial encounter Qualified Code(s): S09.90XA - Unspecified injury of head, initial encounter Code(s): S09.90XA - Unspecified injury of head, initial encounter Status: Acute Assessment and Plan: -----CT normal and pt appears to have normal mentation. No neck pain. Monitor. Time Spent With Patient Time with patient: 25 - 35 minutes Subjective Date/time seen: 11/19/19 12:40 Interval history: Pt is a 84-year-old female here for shortness of breath and pleural effusion. Patient was seen t
[2019-11-19 12:57] LABS: Glucose Point of Care 120 (65-105)
--- NOTE | 2019-11-19 17:18 | PM.PNPUL ---
Progress Note: A&P Assessment and Plan (1) Pleural effusion, right: Code(s): J90 - Pleural effusion, not elsewhere classified Status: Acute Assessment and Plan: She has had recurrent pleural effusion in the right due to autoimmune hepatitis with cirrhosis. She is followed by EUFEMIA Diaz; pH is normal. Small elevation in rbc count in the pleural fluid; oxygenating adequately on 2 L/min. Has hx CHF with preserved EF, has chronic leg swelling which she says is stable. BNP was not elevated for age only 89. She does not appear to be having CHF; Will wait for the remainder of the labs on the repeat pleural fluid. Nov 4- repeat right thoracentesis with improvement in dyspnea. (2) Acute respiratory failure with hypoxia: Code(s): J96.01 - Acute respiratory failure with hypoxia Status: Acute Assessment and Plan: She has not required O2 at home. She has been tested with a 6 minute walk and overnight oximetry with low saturation but not low enough to have O2 prescribed. Now is on 3 L/min, sat 93%, which is expected to improve as the effusion 1 L removed and atelectasis improves. (3) History of DVT (deep vein thrombosis): Code(s): Z86.718 - Personal history of other venous thrombosis and embolism Status: Acute Assessment and Plan: Her calves are swollen, left several inches larger than right. Nov 18- negative LE dopplers. Her sister Ashwini and Dilan came, asking about what can be done for her legs. She can consider a lymphedema specialist; there may be some treatment that can help reduce leg size. Lymphedema is a diagnosis of exclusion. 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 She sees EUFEMIA Diaz. She has not had any specific treatment for this. (5) Shortness of Breath: Code(s): R06.02 - Shortness of breath Status: Acute Assessment and Plan: She is less short of breath since 1 L thoracentesis Right side Feb 2 and better still after repeat thoracentesis today; close to baseline. Her shortness of breath is worse with exertion, worsens when effusion increases. Subjective Date/time seen: 11/19/19 17:18 This 84 yo female is seen in follow up for recurrent right pleural effusion due to autoimmune hepatitis with cirrhosis with shortness of breath. Feels better after repeat thoracentesis Feb 4. Her sister Ashwini arrived during the visit with Dilan. Feb 2nd- fell, landed backwards on her buttocks, hit back of head; CXR large R pleural effusion Feb 2; 1 L with pH 7.46. She does not use O2 at home, now is on nasal cannula @ 2 L/min with saturation 93%. On admission, had low sat in ER to 80% on room air, and O2 was started. She has had borderline low O2 saturation in the past, has not met criteria to have O2 in the home. Feb 3- LE dopplers (-) for DVT in legs Feb 4- repeat right thoracentesis; feels unique short of breath PMH: CKD, atrial fib not on anticoagulants, HTN, CHF with preserved EF, aplastic anemia. Review of Systems Cardiovascular: Cardiovascular: Reports no additional cardiovascular complaints, Reports leg edema (this is chronic, unchanged.) and Reports dyspnea Respiratory: Respiratory: Reports dyspnea Exam Narrative: Exam Narrative: Alert, pleasant, poor memory. Const: General: cooperative HENMT: Head: normal to inspection (She complains of pain on back of head; scalp is atraumatic.) Ears: hearing grossly normal bilaterally General nose exam: Normal external nos
[2019-11-19 18:35] LABS: Glucose Point of Care 133 (65-105)
[2019-11-19] MEDS: INSULIN GLARGINE (*BKC) 100 UNITS/ML 10 UNITS SUB-Q (21:38)
[2019-11-19 23:09] LABS: Glucose Point of Care 174 (65-105)
[2019-11-20] VITALS: PULSE 65
[2019-11-20 04:00] VITALS: PULSE 67
[2019-11-20] MEDS: LEVOTHYROXINE SODIUM 112 MCG TABLET PO (05:52)
[2019-11-20 06:00] VITALS: PULSE 78; RESP 18; TEMP 36.3; O2SAT 100
[2019-11-20 06:32] LABS: Ammonia < 9 umol/L (9-30)
[2019-11-20 06:33] LABS: Hematocrit 33.9 % (37.0-47.0); Hemoglobin 10.3 g/dL (12.0-15.0); Immature Platelet Fraction Pct 6.1 % (0.9-11.2); Mean Corpuscular HGB Conc 30.4 g/dl (32-36); Mean Corpuscular Hemoglobin 29.4 pg (26-34); Mean Corpuscular Volume 96.9 fl (80-100); Mean Platelet Volume 11.5 fl (7.4-10.4); Platelet Count Result 105 k/mm3 (150-375); Red Cell Distribution Width 15.3 % (11.5-14.5); White Blood Count 5.3 K/mm3 (4.5-10.0)
[2019-11-20 06:56] LABS: Alanine Aminotransferase 27 U/L (4-35); Albumin Level 3.2 g/dL (3.5-5.1); Alkaline Phosphatase 177 U/L (38-126); Aspartate Amino Transferase 33 U/L (14-36); Bilirubin,Total 0.5 mg/dL (0.2-1.3); Blood Urea Nitrogen 24 mg/dL (7-17); Calcium 8.7 mg/dL (8.4-10.2); Carbon Dioxide 31 mmol/L (22-30); Chloride 100 mmol/L (98-107); Estimated CRCL calculation 25 ml/min; Estimated Glomerular Filt Rate 43; Glucose 55 mg/dL (65-105); Potassium 3.9 mmol/L (3.4-5.0); Sodium 137 mmol/L (137-145)
[2019-11-20] MEDS: GLUCOSE ORAL GEL 15 GM OF GLUCSE IN 37.5 GM TUBE PO (07:10)
[2019-11-20 07:52] LABS: Glucose Point of Care 65 (65-105)
[2019-11-20 07:52] LABS: Glucose Point of Care 43 (65-105)
[2019-11-20 08:00] VITALS: PULSE 68; PULSE 78; RESP 18; O2SAT 100
[2019-11-20] MEDS: ATORVASTATIN 20 MG TABLET PO (09:03)
[2019-11-20] MEDS: CHOLECALCIFEROL 1,000 UNIT TABLET 2000 UNITS PO (09:03)
[2019-11-20] MEDS: CALCIUM CARBONATE (OSCAL) 500 MG TABLET 1000 MG PO (09:04)
[2019-11-20] MEDS: POTASSIUM CHLORIDE 10 MEQ TABLET.ER 20 MEQ PO (09:04)
[2019-11-20] MEDS: FUROSEMIDE 40 MG TABLET PO (09:05)
[2019-11-20] MEDS: FAMOTIDINE 20 MG TABLET PO (09:05)
[2019-11-20] MEDS: FLUOXETINE HCL 20 MG CAP PO (09:05)
[2019-11-20] MEDS: LOTEPREDNOL ETABONATE 0.5% OPH 5 ML BOTTLE 1 DROP RIGHT EYE ×3 (09:06→17:05)
--- NOTE | 2019-11-20 11:42 | PM.IMPN ---
Progress Note: A&P Assessment and Plan (1) Cirrhosis: Code(s): K74.60 - Unspecified cirrhosis of liver Status: Acute Assessment and Plan: -----known cirrhosis and esophageal varices. Patient sees Dr. Martin outpatient. Recent imaging shows moderate ascites. Plan to do a paracentesis evaluation of this. Spironolactone started. Albumin will be given after paracentesis today. Continue Lasix as well and watch renal function closely. May consider evaluation outpatient for TIPs (2) Acute respiratory failure with hypoxia: Code(s): J96.01 - Acute respiratory failure with hypoxia Status: Acute Assessment and Plan: -----continue to wean oxygen as tolerated tolerated. Patient has not had any hypoxia with the oxygen. She walked the halls and did not feel short of breath today. They got 1000ml with her thoracentesis 11/17. I spoke with Dr. Aguirre and we are going to do another thoracentesis today since she still has a large pleural effusion. We will also do a CT of the chest to ensure no etiology can be found. (3) Pleural effusion, right: Code(s): J90 - Pleural effusion, not elsewhere classified Status: Acute Assessment and Plan: -----see above. Thoracentesis 11/19 obtained another 1000 mL of fluid. She is feeling better and less short of breath. I have spoken to the nurse about weaning her oxygen since she has been 95-100% almost this entire time. CT of the chest reviewed. Patient sees Dr. Aguirre. Still waiting on some labs but thought to be due to her cirrhosis. LDH and protein pending. Cytology shows reactive mesothelial cells and chronic inflammatory cells but no malignancy. G stain had few white blood cells and no organisms. (4) Diabetes mellitus: Qualifiers: Diabetes mellitus complication status: without complication Diabetes mellitus keno terminal operator insulin use: with mcc use Diabetes mellitus type: type 2 Qualified Code(s): E11.9 - Type 2 diabetes mellitus without complications; Z79.4 - senior care (current) use of insulin Code(s): E11.9 - Type 2 diabetes mellitus without complications Status: Chronic Assessment and Plan: -----last glucose 65. Patient has not been eating that much because she has a low appetite and she has been NPO for procedures. At this time I am going to hold Lantus throughout her stay and slight her since she has had low blood glucose this morning. I am also going to do an A1c in the morning to see where she is that. (5) A-fib: Qualifiers: Atrial fibrillation type: unspecified Qualified Code(s): I48.91 - Unspecified atrial fibrillation Code(s): I48.91 - Unspecified atrial fibrillation Status: Chronic Assessment and Plan: ------Patient is not appear to be on any anticoagulation. The patient's daughter states that she 'hemorrhages out of her rectum' when on anticoagulation. We will continue the patient's diltiazem at this time . (6) Chronic hypertension: Code(s): I10 - Essential (primary) hypertension Status: Chronic Assessment and Plan: -----last blood pressure 100/55. Will continue to monitor and if she trends high we may adjust her hypertensive medications. (7) CHF (congestive heart failure): Qualifiers: Heart failure chronicity: unspecified Heart failure type: unspecified Qualified Code(s): I50.9 - Heart failure, unspecified Code(s): I50.9 - Heart failure, unspecified Status: Chronic Assessment and Plan: -----pleural effusion could be from her CHF but since it is one-sided it is less likely since she also has ascites. Will await labs from her pleural effusion as stated above. (8) CKD (chronic kidney disease) stage 3, GFR 30-59 ml/min: Code(s): N18.3 - Chronic kidney disease, stage 3 (moderate) Status: Acute Assessment and Plan: -----pt at baseline. continue to monitor. Will
--- NOTE | 2019-11-20 12:03 | WPDGICN ---
GI Consult Note Consult date/time: 11/20/19 12:03 HPI: Coleen Wu is a 84 year old female seen at the request of the hospitalist with the patient's permission. The patient examined and chart was reviewed. Impression: Groves cirrhosis with complicating factors: Ascites. 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 Anemia multifactorial in origin. Component of pancytopenia. No evidence of active GI blood loss. History of aplastic anemia. Esophageal stricture. Diverticulosis coli. 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 Asymptomatic gallstones. Status post recent fall. Chronic kidney disease. Atrial fibrillation. Congestive heart failure. Hypertension. Hypothyroidism. Diabetes mellitus. History of deep venous thrombosis. Recommendation: Will proceed with diagnostic and therapeutic paracentesis. Agree with Aldactone 50 mg b.i.d.. If fluid accumulation continues and recurrent paracentesis of no benefit may have to consider TIPS procedure. Will follow along with you. History: This very pleasant lady's well known to myself. She has a history of Groves cirrhosis with multiple complicating factors mentioned above. The patient denies any nausea, vomiting or hematemesis. She denies any constipation, diarrhea, hematochezia, melena or acholic stools. The patient has been having recurrent pleural effusions requiring thoracentesis. Presently she is not breathing quite well. She is having no cough, sputum production or hemoptysis. The patient denies any chest pain, tightness or pressure. She does notice increasing abdominal girth and lower extremity edema. GI consultation was obtained to evaluate for the ascites and recurrent pleural effusions. Review of Systems Review of Systems: All systems reviewed & are unremarkable except as noted in HPI and below PMFSH Past Medical History Medical History (Updated 11/20/19 @ 12:16 by Johann Martin DO) A-fib Aplastic anemia Ascites CHF (congestive heart failure) Chronic hypertension CKD (chronic kidney disease) stage 3, GFR 30-59 ml/min Diabetes mellitus History of DVT (deep vein thrombosis) Liver cirrhosis secondary to GROVES Shortness of Breath Thrombocytopenia due to hypersplenism Wrist fracture Surgical History Surgical History (Updated 11/20/19 @ 12:16 by Johann Martin DO) H/O: hysterectomy History of appendectomy History of colonoscopy History of esophagogastroduodenoscopy (EGD) Hx of total hip arthroplasty No pertinent past surgical history S/P IVC filter Social History Social History Smoking status: Never smoker Second hand tobacco smoke exposure: No Alcohol intake: never Substance use: never Substance use type: does not use Gender identity (if verbalized by the patient): Female Spiritual care concerns: No Agree to blood products: No Meds Home Medications and Allergies Home Medications Medication Instructions Recorded Confirmed Type aliskiren [Tekturna] 150 mg PO DAILY 11/16/19 11/17/19 History atorvastatin 20 mg PO DAILY 11/16/19 11/17/19 History diltiazem HCl 240 mg PO DAILY 11/16/19 11/17/19 History famotidine 20 mg PO DAILY 11/16/19 11/17/19 History insulin glargine [Basaglar KwikPen 10 unit SUBCUT HS 11/16/19 11/17/19 History U-100 Insulin] levothyroxine 112 mcg PO DAILY 11/16/19 11/17/19 History Calcium 500 1,000 mg PO DAILY 11/17/19 11/17/19 History bromfenac [Prolensa] 1 drp RIGHTEYE DAILY 11/17/19 11/17/19 History cholecalciferol (vitamin D3) 2,000 unit PO DAILY 11/17/19 11/17/19 History [Vitamin D3] fluoxetine 20 mg PO DAILY 11/17/19 11/17/19 History furosemide 40 mg PO DAILY 11/17/19 11/17/19 History loteprednol etabonate [Lotemax] 1
[2019-11-20 12:04] LABS: Prothrombin Time 12.4 Seconds (11.1-14.7)
[2019-11-20 12:05] LABS: Partial Thromboplastin Time 26.2 SECONDS (22.3-36.8)
--- NOTE | 2019-11-20 13:53 | PCOTNOTE ---
Attempted to see patient this pm, however patient going down for testing at this time.
[2019-11-20 14:00] VITALS: BP 107/57; PULSE 59; RESP 16; TEMP 36.6; O2SAT 100
[2019-11-20 14:08] LABS: Glucose Point of Care 137 (65-105)
[2019-11-20] MEDS: SPIRONOLACTONE 50 MG TABLET PO ×2 (14:36→17:05)
[2019-11-20 16:36] LABS: Glucose Point of Care 73 (65-105)
[2019-11-20 16:43] LABS: Appearance Peritoneal Fluid Hazy (Clear); Color Peritoneal Fluid Yellow (Colorless); Nucleated Cells Peritoneal Flu 54 /uL (0-500); RBC Peritoneal Fluid 848 /uL (0-100000); Source Peritoneal Fluid Peritoneal Fluid
[2019-11-20 16:51] LABS: Eosinophils Peritoneal Fluid 0 %; Lymphocytes Peritoneal Fluid 65 %; Macrophages Peritoneal Fluid 3 %; Monocytes Peritoneal Fluid 19 %; Neutrophils Peritoneal Fluid 13 % (0-25)
--- NOTE | 2019-11-20 18:26 | PM.PNPUL ---
Progress Note: A&P Assessment and Plan (1) Pleural effusion, right: Code(s): J90 - Pleural effusion, not elsewhere classified Status: Acute Assessment and Plan: She has had recurrent pleural effusion in the right due to CORADO with cirrhosis. She is followed by EUFEMIA Diaz; pH is normal. Small elevation in rbc count in the pleural fluid; oxygenating adequately on 2 L/min. Has hx CHF with preserved EF, has chronic leg swelling which she says is stable. BNP was not elevated for age only 89. She does not appear to be having CHF; Will wait for the remainder of the labs on the repeat pleural fluid. Nov 4- repeat right thoracentesis with improvement in dyspnea. (2) Acute respiratory failure with hypoxia: Code(s): J96.01 - Acute respiratory failure with hypoxia Status: Acute Assessment and Plan: She has not required O2 at home. She has been tested with a 6 minute walk and overnight oximetry with low saturation but not low enough to have O2 prescribed. Now is on 3 L/min, sat 93%, which is expected to improve as the effusion 1 L removed and atelectasis improves. (3) History of DVT (deep vein thrombosis): Code(s): Z86.718 - Personal history of other venous thrombosis and embolism Status: Acute Assessment and Plan: Her calves are swollen, left several inches larger than right. Nov 18- negative LE dopplers. Her sister Ashwini and Dilan came, asking about what can be done for her legs. She can consider a lymphedema specialist; there may be some treatment that can help reduce leg size. Lymphedema is a diagnosis of exclusion. 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 She sees EUFEMIA Diaz. She has not had any specific treatment for this. (5) Shortness of Breath: Code(s): R06.02 - Shortness of breath Status: Acute Assessment and Plan: She is less short of breath since 1 L thoracentesis Right side Feb 2 and better still after repeat thoracentesis today; close to baseline. Her shortness of breath is worse with exertion, worsens when effusion increases. Subjective Date/time seen: 11/20/19 18:26 This 84 yo female is seen in follow up for recurrent right pleural effusion due to CORADO cirrhosis with ascites; thrombocytopenia secondary to hypersplenism; portal hypertension with esophageal varices, portal hypertensive gastropathy and gastric varices; hepatic hydrothorax. Feb 2nd- fell, landed backwards on her buttocks, hit back of head; CXR large R pleural effusion Feb 2; 1 L with pH 7.46. Required O2 at 3 L/min, weaned to 2 L/. On admission, had low sat in ER to 80% on room air, and O2 was started. Had borderline low O2 saturation in the past, has not met criteria to have O2 in the home. Feb 3- LE dopplers (-) for DVT in legs Feb 4- repeat right thoracentesis; feels less short of breath Feb 5-paracentesis; cirrhosis meds started by Dr. Martin PMH: CKD, atrial fib not on anticoagulants, HTN, CHF with preserved EF, aplastic anemia. Review of Systems Cardiovascular: Cardiovascular: Reports no additional cardiovascular complaints, Reports leg edema (this is chronic, unchanged.) and Reports dyspnea Respiratory: Respiratory: Reports dyspnea Exam Narrative: Exam Narrative: Alert, pleasant, not in distress. Const: General: cooperative HENMT: Head: normal to inspection (She complains of pain on back of head; scalp is atraumatic.) Ears: hearing grossly normal bilaterally General nose ex
--- NOTE | 2019-11-20 19:53 | PC.NURSE ---
1700 CALLED RONNIE TALBERT WITH 02 SATS AFTER 1 HR OFF 02 [id number]% put 02 back on PT AND WILL CONT WITH 02 AT 2L
--- NOTE | 2019-11-20 20:00 | PC.NURSE ---
Judi CALLED RONNIE WITH RESULTS OF CHEST XY CONT 02 BEFORE
[2019-11-20 20:44] LABS: Glucose Pleural Fluid 179 mg/dL; LDH Pleural Fluid 81 U/L; Total Protein Pleural Fluid <3.0 g/dL
[2019-11-20 21:10] LABS: Glucose Point of Care 213 (65-105)
[2019-11-20 21:55] VITALS: BP 119/53; PULSE 66; RESP 18; TEMP 37.1; O2SAT 93
[2019-11-21] VITALS (7 sets, daily range): BP systolic 104–129; BP diastolic 45–60; PULSE 64–77; RESP 16–18; TEMP 36.7–37.2; O2SAT 91–100
[2019-11-21] MEDS: LEVOTHYROXINE SODIUM 112 MCG TABLET PO (06:26)
[2019-11-21 07:09] LABS: Hemoglobin 10.3 g/dL (12.0-15.0); Hemoglobin A1C 7.1 % (<5.7); Mean Corpuscular HGB Conc 31.2 g/dl (32-36); Mean Corpuscular Hemoglobin 30.7 pg (26-34); Mean Corpuscular Volume 98.2 fl (80-100); Mean Platelet Volume 11.4 fl (7.4-10.4); Platelet Count Result 106 k/mm3 (150-375); Red Blood Count 3.36 M/mm3 (4.2-5.4); Red Cell Distribution Width 15.3 % (11.5-14.5); White Blood Count 4.4 K/mm3 (4.5-10.0)
[2019-11-21 07:16] LABS: Alanine Aminotransferase 27 U/L (4-35); Albumin Level 3.1 g/dL (3.5-5.1); Alkaline Phosphatase 161 U/L (38-126); Aspartate Amino Transferase 33 U/L (14-36); Bilirubin,Total 0.6 mg/dL (0.2-1.3); Blood Urea Nitrogen 26 mg/dL (7-17); Calcium 8.5 mg/dL (8.4-10.2); Carbon Dioxide 27 mmol/L (22-30); Chloride 103 mmol/L (98-107); Estimated CRCL calculation 25 ml/min; Estimated Glomerular Filt Rate 43; Glucose 108 mg/dL (65-105); Potassium 4.2 mmol/L (3.4-5.0); Sodium 137 mmol/L (137-145)
--- NOTE | 2019-11-21 08:06 | WPDGIPROGNO ---
Subjective Date/time seen: 11/21/19 08:06 The patient is feeling better. She is status post paracentesis. The patient wants to go home today. She denies any shortness of breath or dyspnea. HEENT: Head was normocephalic sclerae is clear mouth without masses neck was supple. Heart rate rhythm regular without S3 or S4. Lungs Decreased breath sounds right lung. Abdomen is soft with no guarding or rigidity. Bowel sounds were active. Neurologic cranial nerves intact. No focal defects. No clonus. Musculoskeletal system revealed no joint tenderness or swelling no muscle atrophy. Extremities reveal Mild edema. Skin is warm and dry with normal turgor. Mental status is intact. Patient is alert and oriented. Impression: Groves cirrhosis with complicating factors: Ascites. 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 Anemia multifactorial in origin. Component of pancytopenia. No evidence of active GI blood loss. History of aplastic anemia. Esophageal stricture. Diverticulosis coli. 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 Asymptomatic gallstones. Status post recent fall. Chronic kidney disease. Atrial fibrillation. Congestive heart failure. Hypertension. Hypothyroidism. Diabetes mellitus. History of deep venous thrombosis. Recommendation: Continue diuresis with Aldactone and Lasix. Await final studies on paracentesis fluid. Continue present medications. Objective Data Vital Signs Vital Signs: Vital Signs - 24 hr 11/20/19 14:00 11/20/19 21:55 11/21/19 06:00 Temperature 36.6 C 37.1 C 37.0 C Pulse Rate 59 L 66 64 Respiratory Rate 16 18 16 Blood Pressure 107/57 L 119/53 L 122/60 Pulse Oximetry 100 93 95 Intake/Output Intake/Output: Intake & Output 11/18/19 11/19/19 11/20/19 11/21/19 23:59 23:59 23:59 23:59 Intake Total 400 830 520 400 Output Total 400 1600 410 Balance 0 -770 110 400 Meds/Results Medications: Active Medications Generic Name Dose Route Start Last Admin Trade Name Freq PRN Reason Stop Dose Admin Acetaminophen 650 mg 11/17/19 02:42 11/18/19 12:47 Tylenol Tablet PO 650 mg Q4H PRN Administration Mild Pain (1-3) or Fever Atorvastatin Calcium 20 mg 11/17/19 09:00 11/20/19 09:03 Lipitor PO 20 mg DAILY LOVE Administration Calcium Carbonate 1,000 mg 11/17/19 09:00 11/20/19 09:04 Oscal 500 Mg PO 1,000 mg DAILY LOVE Administration Dextrose 12.5 gm 11/17/19 02:41 Dextrose 50% Syringe IV PUSH PRN PRN Hypoglycemia Protocol Diltiazem HCl 240 mg 11/17/19 09:00 11/20/19 09:04 Cardizem Cd PO 240 mg DAILY LOVE Administration Famotidine 20 mg 11/17/19 09:00 11/20/19 09:05 Pepcid PO 20 mg DAILY LOVE Administration Fluoxetine HCl 20 mg 11/17/19 09:00 11/20/19 09:05 Prozac PO 20 mg DAILY LOVE Administration Furosemide 40 mg 11/18/19 09:00 11/20/19 09:05 Lasix Tablet PO 40 mg DAILY LOVE Administration Glucagon 1 mg 11/17/19 02:41 Glucagon For Inj IM PRN PRN Hypoglycemia Protocol Glucose 15 gm 11/17/19 02:41 11/20/19 07:10 Glutose 15 PO 15 gm PRN PRN Administration Hypoglycemia Protocol Dextrose 1,000 mls @ 100 mls/hr 11/17/19 02:41 Dextrose 5% 1,000 Ml IVPB PRN PRN Hypoglycemia Protocol Insulin Aspart 3 - 6 units 11/17/19 08:00 11/20/19 17:04 Novolog SUB-Q Not Given [facility] Protocol Insulin Glargine 10 units 11/17/19 21:00 11/19/19 21:38 Lantus SUB-Q 10 units HS LOVE Administration Levothyroxine Sodium 112 mcg 11/17/19 06:30 11/21/19 06:26 Synthroid PO 112 mcg DAILY@0630 LOVE Administration Loteprednol Etabonate 1 drop 11/17/19 13:00 11/20/19 17:05 Lotemax RIGHT E
[2019-11-21 08:22] LABS: Glucose Point of Care 106 (65-105)
[2019-11-21] MEDS: CHOLECALCIFEROL 1,000 UNIT TABLET 2000 UNITS PO (08:59)
[2019-11-21] MEDS: FUROSEMIDE 40 MG TABLET PO (08:59)
[2019-11-21] MEDS: LOTEPREDNOL ETABONATE 0.5% OPH 5 ML BOTTLE 1 DROP RIGHT EYE ×3 (09:06→17:15)
[2019-11-21] MEDS: POTASSIUM CHLORIDE 10 MEQ TABLET.ER 20 MEQ PO (09:07)
[2019-11-21] MEDS: FLUOXETINE HCL 20 MG CAP PO (09:08)
[2019-11-21] MEDS: CALCIUM CARBONATE (OSCAL) 500 MG TABLET 1000 MG PO (09:12)
[2019-11-21] MEDS: SPIRONOLACTONE 50 MG TABLET PO ×2 (09:13→17:15)
[2019-11-21] MEDS: ATORVASTATIN 20 MG TABLET PO (09:14)
[2019-11-21] MEDS: FAMOTIDINE 20 MG TABLET PO (09:15)
[2019-11-21 09:35] LABS: Total Triiodothyronine (T3) 0.67 NG/ML (0.97-1.69)
[2019-11-21 12:09] LABS: Glucose Point of Care 153 (65-105)
--- NOTE | 2019-11-21 13:29 | PM.IMPN ---
Progress Note: A&P Assessment and Plan (1) Cirrhosis: Code(s): K74.60 - Unspecified cirrhosis of liver Status: Acute Assessment and Plan: -----known cirrhosis and esophageal varices. Patient sees Dr. Martin outpatient. Recent imaging shows moderate ascites. Paracentesis did not yield very much fluid but has been sent to the lab. No infection suspected. Spironolactone started. Continue Lasix as well and watch renal function closely. May consider evaluation outpatient for TIPs. I spoke with her daughter about this. (2) Acute respiratory failure with hypoxia: Code(s): J96.01 - Acute respiratory failure with hypoxia Status: Acute Assessment and Plan: -----continue to wean oxygen as tolerated but pt did not tolerate that yesterday and dropped to 77%. Will continue diuretic therapy to see if this helps. She still has very limited breath sounds on her right lung but the apices were more clear today. She did walk the halls and did not feel short of breath yesterday. They got 1000ml with her thoracentesis 11/17 and 11/19. (3) Pleural effusion, right: Code(s): J90 - Pleural effusion, not elsewhere classified Status: Acute Assessment and Plan: -----see above. Labs are transudate which is consistent with cirhossis. CHF seems less likely. Thoracentesis 11/19 obtained another 1000 mL of fluid. She is feeling better and less short of breath. Pt has better lung sounds today but unable to be weaned off o2 yesterday. CT of the chest reviewed. Patient sees Dr. Aguirre. Cytology shows reactive mesothelial cells and chronic inflammatory cells but no malignancy. G stain had few white blood cells and no organisms. (4) Diabetes mellitus: Qualifiers: Diabetes mellitus type: type 2 Diabetes mellitus fpc insulin use: with ad terminal makeup operator use Diabetes mellitus complication status: without complication Qualified Code(s): E11.9 - Type 2 diabetes mellitus without complications; Z79.4 - terminal makeup operator (current) use of insulin Code(s): E11.9 - Type 2 diabetes mellitus without complications Status: Chronic Assessment and Plan: -----last glucose 153. Pts a1c is 7.1 and I spoke with the pt and daughter about her DM regimen and that it might need to be decreased. They said she usually runs about 90 in the mornings. She has had some lows here and she doesn't always eat a large diet meal so at discharge this will be adjusted. (5) A-fib: Qualifiers: Atrial fibrillation type: unspecified Qualified Code(s): I48.91 - Unspecified atrial fibrillation Code(s): I48.91 - Unspecified atrial fibrillation Status: Chronic Assessment and Plan: ------Patient is not appear to be on any anticoagulation. The patient's daughter states that she 'hemorrhages out of her rectum' when on anticoagulation. We will continue the patient's diltiazem at this time . (6) Chronic hypertension: Code(s): I10 - Essential (primary) hypertension Status: Chronic Assessment and Plan: -----last blood pressure 124/60. Will continue to monitor and if she trends high we may adjust her hypertensive medications. (7) CHF (congestive heart failure): Qualifiers: Heart failure type: unspecified Heart failure chronicity: unspecified Qualified Code(s): I50.9 - Heart failure, unspecified Code(s): I50.9 - Heart failure, unspecified Status: Chronic Assessment and Plan: -----pleural effusion could be from her CHF but since it is one-sided it is less likely since she also has ascites. continue diuretics (8) CKD (chronic kidney disease) stage 3, GFR 30-59 ml/min: Code(s): N18.3 - Chronic kidney disease, stage 3 (moderate) Status: Acute Assessment and Plan: -----pt at baseline. continue to monitor. Will have to monitor closely with the addition of spironolactone. (9) Closed head injury: Qualif
--- NOTE | 2019-11-21 16:03 | PC.NURSE ---
Daughter Karen called to check on her mother. She wants to be called tomorrow with an update.
[2019-11-21 16:33] LABS: Glucose Point of Care 135 (65-105)
[2019-11-21 19:44] LABS: Glucose Point of Care 191 (65-105)
--- NOTE | 2019-11-21 19:47 | P.PNPL_ITS ---
Progress Note: A&P Assessment and Plan (1) Pleural effusion, right: Code(s): J90 - Pleural effusion, not elsewhere classified Status: Acute Assessment and Plan: She has had recurrent pleural effusion in the right due to CORADO with cirrhosis. She is followed by EUFEMIA Diaz; pH is normal. Small elevation in rbc count in the pleural fluid; oxygenating adequately on 2 L/min. Has hx CHF with preserved EF, has chronic leg swelling which she says is stable. BNP was not elevated for age only 89. She does not appear to be having CHF; Will wait for the remainder of the labs on the repeat pleural fluid. Nov 4- repeat right thoracentesis with improvement in dyspnea. (2) Acute respiratory failure with hypoxia: Code(s): J96.01 - Acute respiratory failure with hypoxia Status: Acute Assessment and Plan: She has not required O2 at home. She has been tested with a 6 minute walk and overnight oximetry with low saturation but not low enough to have O2 prescribed. Now is on 3 L/min, sat 93%, which is expected to improve as the effusion 1 L removed and atelectasis improves. (3) History of DVT (deep vein thrombosis): Code(s): Z86.718 - Personal history of other venous thrombosis and embolism Status: Acute Assessment and Plan: Her calves are swollen, left several inches larger than right. Nov 18- negative LE dopplers. Her sister Ashwini and Dilan came, asking about what can be done for her legs. She can consider a lymphedema specialist; there may be some treatment that can help reduce leg size. Lymphedema is a diagnosis of exclusion. 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 She sees EUFEMIA Diaz. She has not had any specific treatment for this. (5) Shortness of Breath: Code(s): R06.02 - Shortness of breath Status: Acute Assessment and Plan: She is less short of breath since 1 L thoracentesis Right side Feb 2 and better still after repeat thoracentesis today; close to baseline. Her shortness of breath is worse with exertion, worsens when effusion increases. 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 Feb 2nd- fell, landed backwards on her buttocks, hit back of head; CXR large R pleural effusion Feb 2; 1 L with pH 7.46. Required O2 at 3 L/min, weaned to 2 L/. On admission, had low sat in ER to 80% on room air, and O2 was started. Had borderline low O2 saturation in the past, has not met criteria to have O2 in the home. Feb 3- LE dopplers (-) for DVT in legs Feb 4- repeat right thoracentesis; feels less short of breath Feb 5-paracentesis; cirrhosis meds started by Dr. Martin PMH: CKD, atrial fib not on anticoagulants, HTN, CHF with preserved EF, aplastic anemia. Review of Systems Cardiovascular: Cardiovascular: Reports no additional cardiovascular complaints, Reports leg edema (this is chronic, unchanged.) and Reports
[2019-11-22] VITALS (7 sets, daily range): BP systolic 106–142; BP diastolic 48–67; PULSE 68–96; RESP 16–18; TEMP 36.9–37.2; O2SAT 90–96
[2019-11-22] MEDS: LEVOTHYROXINE SODIUM 112 MCG TABLET PO (06:09)
[2019-11-22 06:50] LABS: Blood Urea Nitrogen 32 mg/dL (7-17); Calcium 8.7 mg/dL (8.4-10.2); Carbon Dioxide 30 mmol/L (22-30); Chloride 101 mmol/L (98-107); Estimated CRCL calculation 22 ml/min; Estimated Glomerular Filt Rate 36; Glucose 134 mg/dL (65-105); Potassium 4.4 mmol/L (3.4-5.0); Sodium 140 mmol/L (137-145)
[2019-11-22] MEDS: LOTEPREDNOL ETABONATE 0.5% OPH 5 ML BOTTLE 1 DROP RIGHT EYE ×3 (08:15→17:01)
[2019-11-22] MEDS: FUROSEMIDE 40 MG TABLET PO (08:15)
[2019-11-22] MEDS: FLUOXETINE HCL 20 MG CAP PO (08:16)
[2019-11-22] MEDS: CHOLECALCIFEROL 1,000 UNIT TABLET 2000 UNITS PO (08:16)
[2019-11-22] MEDS: FAMOTIDINE 20 MG TABLET PO (08:16)
[2019-11-22] MEDS: SPIRONOLACTONE 50 MG TABLET PO (08:16)
[2019-11-22] MEDS: ATORVASTATIN 20 MG TABLET PO (08:17)
[2019-11-22] MEDS: CALCIUM CARBONATE (OSCAL) 500 MG TABLET 1000 MG PO (08:17)
[2019-11-22 08:30] LABS: Glucose Point of Care 111 (65-105)
--- NOTE | 2019-11-22 11:16 | HOMEO2EVAL ---
Home Oxygen Evaluation RC: Home Oxygen (O2) Evaluation Start: 11/22/19 09:24 Freq: ONCE Status: Active Protocol: RPE Activity Type Activity Date Activity User E-Sign Co-Sign Detail Recorded Client Recorded Date Recorded By Document 11/22/19 10:50 DJO [email or web address] 11/22/19 11:16 DJO Document 11/22/19 10:55 DJO [email or web address] 11/22/19 11:16 DJO Document 11/22/19 11:05 [email or web address] [email or web address] 11/22/19 11:16 DJO 11/22/19 11/22/19 11/22/19 10:50 10:55 11:05 Home O2 Evaluation Test Phase Resting Exercise Resting Oxygen Delivery Room Air Room Air Room Air Pulse Oximetry (90-100 %) 95 91 94 Pulse Rate (60-100 beats/min) 80 96 82 Activity Tolerance Good Rating of Perceived Dyspnea (PD) +1 Mild, Noticeable to the Participant but Not to an Observer Ambulation Distance (feet) 300 Treatment Charges O2 Evaluation
--- NOTE | 2019-11-22 11:17 | PCRCNOTE ---
HOME O2 EVAL COMPLETE, NO REQUIREMENTS.
[2019-11-22 11:45] LABS: Glucose Point of Care 167 (65-105)
--- NOTE | 2019-11-22 12:00 | WPDGIPROGNO ---
Subjective Date/time seen: 11/22/19 12:00 This very pleasant lady's feeling better. No nausea, vomiting, or abdominal pain. She continues to have some mild edema and some increased abdominal girth. Her breathing is at baseline. Heart rate irregular. Lungs decreased breath sounds on the right more so than the left. Abdomen is soft with mildly bulging flanks. Bowel sounds were present. Extremities revealed mild edema. HEENT and was unremarkable. Impression: [place] cirrhosis with complicating factors: Ascites. 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 Anemia multifactorial in origin. Component of pancytopenia. No evidence of active GI blood loss. History of aplastic anemia. Esophageal stricture. Diverticulosis coli. 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 Asymptomatic gallstones. Status post recent fall. Chronic kidney disease. Atrial fibrillation. Congestive heart failure. Hypertension. Hypothyroidism. Diabetes mellitus. History of deep venous thrombosis. Recommendation: Will discontinue Aldactone at this time. Will watch laboratory studies as an outpatient. Low-sodium diet. Will have patient follow up in the office in 4 weeks. Objective Data Vital Signs Vital Signs: Vital Signs - 24 hr 11/21/19 14:00 11/21/19 14:23 11/21/19 15:27 Temperature 36.7 C Pulse Rate 65 Respiratory Rate 16 Blood Pressure 104/45 L Pulse Oximetry 96 96 95 11/21/19 20:23 11/21/19 22:00 11/22/19 06:03 Temperature 37.2 C 37.2 C Pulse Rate 76 74 77 Respiratory Rate 16 16 16 Blood Pressure 129/46 L 124/67 Pulse Oximetry 91 92 90 11/22/19 10:50 11/22/19 10:55 11/22/19 11:05 Temperature Pulse Rate 80 96 82 Respiratory Rate Blood Pressure Pulse Oximetry 95 91 94 Intake/Output Intake/Output: Intake & Output 11/19/19 11/20/19 11/21/19 11/22/19 23:59 23:59 23:59 23:59 Intake Total 796 237 3302 670 Output Total 1600 410 Balance -258 262 6928 670 Meds/Results Medications: Active Medications Generic Name Dose Route Start Last Admin Trade Name Freq PRN Reason Stop Dose Admin Acetaminophen 650 mg 11/17/19 02:42 11/18/19 12:47 Tylenol Tablet PO 650 mg Q4H PRN Administration Mild Pain (1-3) or Fever Atorvastatin Calcium 20 mg 11/17/19 09:00 11/22/19 08:17 Lipitor PO 20 mg DAILY LOVE Administration Calcium Carbonate 1,000 mg 11/17/19 09:00 11/22/19 08:17 Oscal 500 Mg PO 1,000 mg DAILY LOVE Administration Dextrose 12.5 gm 11/17/19 02:41 Dextrose 50% Syringe IV PUSH PRN PRN Hypoglycemia Protocol Diltiazem HCl 240 mg 11/17/19 09:00 11/22/19 08:16 Cardizem Cd PO 240 mg DAILY LOVE Administration Famotidine 20 mg 11/17/19 09:00 11/22/19 08:16 Pepcid PO 20 mg DAILY LOVE Administration Fluoxetine HCl 20 mg 11/17/19 09:00 11/22/19 08:16 Prozac PO 20 mg DAILY LOVE Administration Furosemide 40 mg 11/18/19 09:00 11/22/19 08:15 Lasix Tablet PO 40 mg DAILY LOVE Administration Glucagon 1 mg 11/17/19 02:41 Glucagon For Inj IM PRN PRN Hypoglycemia Protocol Glucose 15 gm 11/17/19 02:41 11/20/19 07:10 Glutose 15 PO 15 gm PRN PRN Administration Hypoglycemia Protocol Dextrose 1,000 mls @ 100 mls/hr 11/17/19 02:41 Dextrose 5% 1,000 Ml IVPB PRN PRN Hypoglycemia Protocol Insulin Aspart 3 - 6 units 11/17/19 08:00 11/22/19 08:21 Novolog SUB-Q Not Given TIDWM [facility] Protocol Insulin Glargine 10 units 11/17/19 21:00 11/19/19 21:38 Lantus SUB-Q 10 units HS LOVE Administration Levothyroxine Sodium 112 mcg 11/17/19 06:30 11/22/19 06:09 Synthroid PO 112 mcg DAILY@0630 [facility] Administration Lo
--- NOTE | 2019-11-22 15:12 | PM.IMPN ---
Progress Note: A&P Assessment and Plan (1) Cirrhosis: Code(s): K74.60 - Unspecified cirrhosis of liver Status: Acute Assessment and Plan: -----known cirrhosis and esophageal varices. Patient sees Dr. Martin outpatient. Recent imaging shows moderate ascites. Paracentesis did not yield very much fluid but has been sent to the lab. No infection suspected. Spironolactone was started but increase the patient's creatinine Flick this will be discontinued after speaking with Dr. Martin. Will continue a low-salt diet. Continue Lasix as well and watch renal function closely. May consider evaluation outpatient for TIPs. I spoke with her daughter about this. BMP outpatient 2 weeks (2) Acute respiratory failure with hypoxia: Code(s): J96.01 - Acute respiratory failure with hypoxia Status: Acute Assessment and Plan: -----resolved. Patient passed her home oxygen evaluation and does not need any oxygen. She did walk the halls and did not feel short of breath yesterday. They got 1000ml with her thoracentesis 11/17 and 11/19. (3) Pleural effusion, right: Code(s): J90 - Pleural effusion, not elsewhere classified Status: Acute Assessment and Plan: -----see above. Labs are transudate which is consistent with cirhossis. CHF seems less likely. Thoracentesis 11/19 obtained another 1000 mL of fluid. She is feeling better and less short of breath. Pt has been off oxygen. CT of the chest reviewed. Patient sees Dr. Aguirre. Cytology shows reactive mesothelial cells and chronic inflammatory cells but no malignancy. G stain had few white blood cells and no organisms. (4) Diabetes mellitus: Qualifiers: Diabetes mellitus type: type 2 Diabetes mellitus fci insulin use: with fci use Diabetes mellitus complication status: without complication Qualified Code(s): E11.9 - Type 2 diabetes mellitus without complications; Z79.4 - termination clerk (current) use of insulin Code(s): E11.9 - Type 2 diabetes mellitus without complications Status: Chronic Assessment and Plan: -----last glucose 167. Pts a1c is 7.1 and I spoke with the pt and daughter about her DM regimen and that it might need to be decreased. They said she usually runs about 90 in the mornings. She has had some lows here and she doesn't always eat a large diet meal so at discharge this will be adjusted. (5) A-fib: Qualifiers: Atrial fibrillation type: unspecified Qualified Code(s): I48.91 - Unspecified atrial fibrillation Code(s): I48.91 - Unspecified atrial fibrillation Status: Chronic Assessment and Plan: ------Patient is not appear to be on any anticoagulation. The patient's daughter states that she 'hemorrhages out of her rectum' when on anticoagulation. We will continue the patient's diltiazem at this time . (6) Chronic hypertension: Code(s): I10 - Essential (primary) hypertension Status: Chronic Assessment and Plan: -----last blood pressure 124/67. Will continue to monitor and if she trends high we may adjust her hypertensive medications. (7) CHF (congestive heart failure): Qualifiers: Heart failure type: unspecified Heart failure chronicity: unspecified Qualified Code(s): I50.9 - Heart failure, unspecified Code(s): I50.9 - Heart failure, unspecified Status: Chronic Assessment and Plan: -----pleural effusion could be from her CHF but since it is one-sided it is less likely since she also has ascites. continue diuretics (8) CKD (chronic kidney disease) stage 3, GFR 30-59 ml/min: Code(s): N18.3 - Chronic kidney disease, stage 3 (moderate) Status: Acute Assessment and Plan: -----a little elevated today likely due to diuretics. These have been adjusted as stated above. (9) Closed head injury: Qualifiers: Encounter type: initial encounter Qualifie
[2019-11-22 16:26] LABS: Glucose Point of Care 127 (65-105)
[2019-11-22 20:43] LABS: Glucose Point of Care 237 (65-105)
[2019-11-22 21:19] LABS: Albumin Pleural Fluid 1.4 g/dL
[2019-11-23 05:39] LABS: Glucose Peritoneal Fluid 127 mg/dL; LDH Peritoneal Fluid 37 U/L (<63); Total Protein Peritoneal Fluid <3.0 g/dL
[2019-11-23] MEDS: LEVOTHYROXINE SODIUM 112 MCG TABLET PO (05:54)
[2019-11-23 06:48] VITALS: BP 147/58; PULSE 81; RESP 16; TEMP 36.6; O2SAT 91
[2019-11-23 06:52] LABS: Blood Urea Nitrogen 30 mg/dL (7-17); Calcium 8.7 mg/dL (8.4-10.2); Carbon Dioxide 30 mmol/L (22-30); Chloride 102 mmol/L (98-107); Estimated CRCL calculation 30 ml/min; Estimated Glomerular Filt Rate 36; Glucose 164 mg/dL (65-105); Potassium 3.9 mmol/L (3.4-5.0); Sodium 139 mmol/L (137-145)
[2019-11-23] MEDS: CHOLECALCIFEROL 1,000 UNIT TABLET 2000 UNITS PO (08:02)
[2019-11-23] MEDS: LOTEPREDNOL ETABONATE 0.5% OPH 5 ML BOTTLE 1 DROP RIGHT EYE ×2 (08:04→12:10)
[2019-11-23 08:05] LABS: Glucose Point of Care 149 (65-105)
[2019-11-23] MEDS: FUROSEMIDE 40 MG TABLET PO (08:06)
[2019-11-23] MEDS: ATORVASTATIN 20 MG TABLET PO (08:06)
[2019-11-23] MEDS: FAMOTIDINE 20 MG TABLET PO (08:07)
[2019-11-23] MEDS: CALCIUM CARBONATE (OSCAL) 500 MG TABLET 1000 MG PO (08:07)
[2019-11-23] MEDS: FLUOXETINE HCL 20 MG CAP PO (08:16)
[2019-11-23 08:21] VITALS: BP 154/69; PULSE 86; RESP 16
[2019-11-23 12:19] LABS: Glucose Point of Care 162 (65-105)
[2019-11-23 13:36] VITALS: BP 114/70; PULSE 77; RESP 16; TEMP 36.7; O2SAT 96
--- NOTE | 2019-11-23 14:30 | PM.DS ---
DS: Diagnosis Admitting Diagnosis Admitting Diagnosis: Pleural effusion, not elsewhere classified Discharge Diagnosis (1) Cirrhosis: Code(s): K74.60 - Unspecified cirrhosis of liver Status: Acute Assessment and Plan: -----known cirrhosis and esophageal varices. Patient sees Dr. Martin outpatient. Recent imaging shows moderate ascites. Paracentesis did not yield very much fluid but has been sent to the lab with no indication of infection. Spironolactone was started but affected her kidneys so this was discontinued. Recommend low-salt diet. May consider evaluation outpatient for TIPs. I spoke with her daughter about this. [facility] outpatient 2 weeks (2) Acute respiratory failure with hypoxia: Code(s): J96.01 - Acute respiratory failure with hypoxia Status: Acute Assessment and Plan: -----resolved. Patient passed her home oxygen evaluation and does not need any oxygen. She did walk the halls and did not feel short of breath yesterday. They got 1000ml with her thoracentesis 11/17 and 11/19. (3) Pleural effusion, right: Code(s): J90 - Pleural effusion, not elsewhere classified Status: Acute Assessment and Plan: -----see above. Labs are transudate which is consistent with cirhossis. CHF seems less likely. Thoracentesis 11/19 obtained another 1000 mL of fluid. She is feeling better and less short of breath. Pt has been off oxygen. CT of the chest reviewed. Patient sees Dr. Aguirre. Cytology shows reactive mesothelial cells and chronic inflammatory cells but no malignancy. G stain had few white blood cells and no organisms. (4) Diabetes mellitus: Qualifiers: Diabetes mellitus complication status: without complication Diabetes mellitus care home insulin use: with care home use Diabetes mellitus type: type 2 Qualified Code(s): E11.9 - Type 2 diabetes mellitus without complications; Z79.4 - exterminator (current) use of insulin Code(s): E11.9 - Type 2 diabetes mellitus without complications Status: Chronic Assessment and Plan: -----last glucose 162. Pts a1c is 7.1 and I spoke with the pt and daughter about stopping her lantus and do diet control at this time and follow up with pcp. They said she usually runs about 90 in the mornings. She has had some lows here and she doesn't always eat a large diet meal (5) A-fib: Qualifiers: Atrial fibrillation type: unspecified Qualified Code(s): I48.91 - Unspecified atrial fibrillation Code(s): I48.91 - Unspecified atrial fibrillation Status: Chronic Assessment and Plan: ------Patient is not appear to be on any anticoagulation. The patient's daughter states that she 'hemorrhages out of her rectum' when on anticoagulation. We will continue the patient's diltiazem at this time . (6) Chronic hypertension: Code(s): I10 - Essential (primary) hypertension Status: Chronic Assessment and Plan: -----last blood pressure 114/70. (7) CHF (congestive heart failure): Qualifiers: Heart failure chronicity: unspecified Heart failure type: unspecified Qualified Code(s): I50.9 - Heart failure, unspecified Code(s): I50.9 - Heart failure, unspecified Status: Chronic Assessment and Plan: -----pleural effusion could be from her CHF but since it is one-sided it is less likely since she also has ascites. continue diuretics (8) CKD (chronic kidney disease) stage 3, GFR 30-59 ml/min: Code(s): N18.3 - Chronic kidney disease, stage 3 (moderate) Status: Acute Assessment and Plan: -----a little elevated today likely due to diuretics. These have been adjusted as stated above. (9) Closed head injury: Qualifiers: Encounter type: initial encounter Qualified Code(s): S09.90XA - Unspecified injury of head, initial encounter Code(s): S09.90XA - Unspecified injury of head, initial en
--- NOTE | 2019-11-23 16:02 | PC.NURSE ---
Discharged to [facility] with daughter, personal affects, discharge paperwork, home medication, eye drops and tablets. Awake, alert, and oriented times two, cues, forgetful, no complaints. Called report to Christie. PCT escorted out to [facility] in wheelchair.
[2019-11-23 19:04] LABS: Albumin Peritoneal Fluid 0.4 g/dL
--- NOTE | 2019-11-29 13:58 | PC.NURSE ---
Ascites fluid cx is negative
--- NOTE | 2019-12-19 14:12 | PC.NURSE ---
Fungal cx is negative.
--- NOTE | 2020-01-03 14:43 | PC.NURSE ---
Pleural fluid AFBC cx is negative.
== END 2019-11-23 16:05 | DRG 432 ==
LOC: ANHED 23:56 → ANH2MED 11-17 01:45 → ANHIMU 11-17 07:13 → ANH3MEDSUR 11-19 01:30
PROVIDERS: Physician Assistant; Admitting Provider Family Medicine; Emergency Provider Emergency Medicine; PCP Internal Medicine; Visit Provider Family Medicine
DX: K74.69 Other cirrhosis of liver (principal); J96.01 Acute respiratory failure with hypoxia; J90 Pleural effusion, not elsewhere classified; I50.32 Chronic diastolic (congestive) heart failure; D61.9 Aplastic anemia, unspecified; R18.8 Other ascites; I13.0 Hypertensive heart and chronic kidney disease with heart failure and stage 1 through stage 4 chronic kidney disease, or unspecified chronic kidney disease; I48.20 Chronic atrial fibrillation, unspecified; K76.6 Portal hypertension; I85.10 Secondary esophageal varices without bleeding; J94.8 Other specified pleural conditions; K75.4 Autoimmune hepatitis; W19.XXXA Unspecified fall, initial encounter; N18.3 Chronic kidney disease, stage 3 (moderate); Z86.718 Personal history of other venous thrombosis and embolism; Z91.81 History of falling; E11.22 Type 2 diabetes mellitus with diabetic chronic kidney disease; Z79.4 Long term (current) use of insulin; D69.59 Other secondary thrombocytopenia; D73.1 Hypersplenism; K31.89 Other diseases of stomach and duodenum; K75.81 Nonalcoholic steatohepatitis (NASH); Z90.710 Acquired absence of both cervix and uterus; Z96.649 Presence of unspecified artificial hip joint; I89.0 Lymphedema, not elsewhere classified; S09.90XA Unspecified injury of head, initial encounter; E11.649 Type 2 diabetes mellitus with hypoglycemia without coma
CPT/HCPCS: 32555; 36415; 36600; 49083; 70450; 71045; 71046; 71250; 72100; 72170; 80048; 80053; 80069; 80076; 82042; 82140; 82805; 82945; 83036; 83615; 83735; 83880; 83986; 84155; 84157; 84439; 84443; 84480; 84484; 85025; 85027; 85055; 85610; 85730; 87015; 87070; 87075; 87102; 87116; 87205; 87206; 88104; 88108; 88184; 88305; 89051; 93005; 93970; 94002; 94618; 97110; 97116; 97161; 97530; 97535; 99285; A9270; C1729; J1650; J1815; J1940; J2060

== ENCOUNTER 2019-11-18 07:13 | Outpatient (CLI) | payer MEDICARE, SELFPAY | END 2019-11-18 07:14 | LOC: ANHIMG 01-30 07:13 | PROVIDERS: PCP Internal Medicine; Visit Provider Nurse Practitioner Family | DX: K70.30 Alcoholic cirrhosis of liver without ascites (principal) | CPT/HCPCS: 88104; 88108; 88305 ==

== ENCOUNTER 2020-01-03 08:10 | Emergency (ER) | payer MEDICARE, SELFPAY ==
--- NOTE | ~2020-01-03 | CT_ITS ---
EXAMINATION: CT brain wo con, CT cervical spine wo con EXAM DATE: 01/03/2020 09:20 (accession [id number]), 01/03/2020 09:22 (accession [id number]) INDICATION: Fall, head injury. TECHNIQUE: Spiral CT of the head was performed without contrast. Axial, coronal and sagittal images were reviewed. Spiral CT of the cervical spine was performed without contrast. Axial images were rev iewed. Coronal and sagittal reformatted images were also reviewed. The dose-length product (DLP) fo r this examination was 605.33 (accession [id number]), 152.67 (accession [id number]) mGy-cm. The exposure was tailored according to patient size, and iterative reconstruction (ASIR) was used as additional dose reduction technique. Comparison is made to prior examination from 11/16/2019. FINDINGS: HEAD CT: There is no acute intraparenchymal hemorrhage. No evidence of intraparenchymal brain mass lesion. No evidence of acute infarction. There is moderate periventricular and subcortical hypodensi ty, nonspecific but probably related to small vessel ischemic disease. There is moderate prominence of the sulci and ventricles related to cerebral atrophy. There is intracranial carotid arterioscle rosis. There is no mass effect or midline shift. There is no obstructive hydrocephalus suspected. There are no extra-axial collections. There are no acute calvarial fractures. Patient has had bilat eral ocular lens surgery. Large left posterior scalp contusion/hematoma. The visualized sinuses and mastoid air cells are well aerated. CERVICAL CT: Large right pleural effusion. Apical emphysema. There is no evidence of acute cervical f racture. The odontoid process is intact. Pre-dens space is normal. Prevertebral soft tissue is nor mal. There are no soft tissue abnormalities identified. There is no disc space widening or traumati c vertebral body subluxation suspected. Overall moderate cervical spondylosis. 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 A detailed level by level evaluation of spondylosis can be add ed as addendum if requested. IMPRESSION: 1. No acute intracranial or cervical findings. 2. Overall moderate cervical spondylosis. 3. Large left posterior scalp contusion/hematoma. 4. Large right pleural effusion. Reviewed, dictated and finalized at location A. IMPRESSION: 1. No acute intracranial or cervical findings. 2. Overall moderate cervical spondylosis. 3. Large left posterior scalp contusion/hematoma. 4. Large right pleural effusion.
[2020-01-03 08:17] VITALS: BP 169/83; PULSE 87; RESP 18; TEMP 36.6; O2SAT 94
--- NOTE | 2020-01-03 08:22 | ED.FALL ---
HPI - Fall General Chief Complaint: Fall Stated Complaint: FALL/HEAD PAIN Time Seen by Provider: 01/03/20 08:22 Source: patient Mode of arrival: EMS Limitations: no limitations History of Present Illness HPI Narrative: An 84 y/o female presents to the ED from an assisted living facility, via EMS, after a fall today. Pt is unsure why she fell and does not remember the fall, but she remembers being on the floor. Pt states that her appetite has been normal. Pt is on a 40 mg water pill daily. She reports a HI, but denies neck pain, dizziness, N/V/D, and a history of falls. Place fall occurred: skilled nursing/SNF Location of injury: head Related Data Home Medications Medication Instructions Recorded Confirmed atorvastatin 20 mg PO DAILY 09/05/19 09/05/19 calcium carbonate-vitamin D3 1 cap PO BID 09/05/19 09/05/19 aliskiren [Tekturna] 150 mg PO DAILY 11/16/19 11/17/19 famotidine 20 mg PO DAILY 11/16/19 11/17/19 Calcium 500 1,000 mg PO DAILY 11/17/19 11/17/19 Lotemax 1 drp RIGHTEYE TID 11/17/19 11/17/19 Prolensa 1 drp RIGHTEYE DAILY 11/17/19 11/17/19 cholecalciferol (vitamin D3) 2,000 unit PO DAILY 11/17/19 11/17/19 [Vitamin D3] ranitidine HCl 150 mg PO BID 11/17/19 11/17/19 Allergies Allergy/AdvReac Type Severity Reaction Status Date / Time iron Allergy Unknown ANAPHYLAXIS-IRON Verified 12/03/19 17:37 INFUSION lisinopril Allergy Unknown SEVERE Verified 12/03/19 17:37 SWELLING ramipril Allergy Unknown SEVERE Verified 12/03/19 17:37 SWELLING spironolactone Allergy Unknown UNKNOWN Verified 12/03/19 17:37 REACTION MARYSE Inhibitors Allergy Anaphylaxis Verified 12/03/19 17:37 codeine Allergy Rash Verified 12/03/19 17:37 blood thinners AdvReac Mild Other Uncoded 12/03/19 17:37 Review of Systems Review of Systems: All systems reviewed & are unremarkable except as noted in HPI and below Constitutional: Comments: Reports: a fall Gastrointestinal: Gastrointestinal: Denies diarrhea, Denies nausea and Denies vomiting Musculoskeletal: Comments: Denies: neck pain Neurologic: Denies dizziness Comments: Reports: [facility] Past Medical History Medical History A-fib Aplastic anemia Ascites CHF (congestive heart failure) Chronic hypertension CKD (chronic kidney disease) stage 3, GFR 30-59 ml/min Depression Diabetes mellitus Diverticulitis Diverticulosis GERD (gastroesophageal reflux disease) GI bleed History of blood transfusion History of DVT (deep vein thrombosis) History of rectal polyps HLD (hyperlipidemia) 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 Mitral valve regurgitation Pneumonia Shingles Shortness of Breath Thrombocytopenia due to hypersplenism Ulcer Wrist fracture Surgical History Surgical History H/O section H/O: hysterectomy History of appendectomy History of cardiac cath History of colonoscopy History of esophagogastroduodenoscopy (EGD) History of thoracentesis History of tonsillectomy Hx of total hip arthroplasty No pertinent past surgical history S/P IVC filter Family History Family History Mother Cerebrovascular accident Hypertension Mother Carcinoma of colon Family history of pancreatic cancer Father Family history of heart disease in male family member before age 55 Acute myocardial infarction, Onset Age: 65 Family history of cardiovascular disease Sibling Patient's sister is in good health Other Family history of suicide Social History Social History Smoking status: Never smoker Second hand tobacco smoke exposure: No Alcohol intake: never Substance use: never Substance use type: does not use Gender identity (if verbalized by the patient): Female Spiritual care concerns: No Agree to blood products: No Comments P
--- NOTE | 2020-01-03 08:27 | ECG_ITS ---
Measurements Intervals [place] Rate: 86 P: GA: 0 QRS: 9 QRSD: 89 T: -33 QT: 376 QTc: 451 Interpretive Statements ATRIAL FIBRILLATION LOW QRS VOLTAGE IN LIMB LEADS CANNOT RULE OUT SEPTAL INFARCT, AGE INDETERMINATE BORDERLINE ST-T WAVE ABNORMALITY- INF/LAT LEADS BASELINE ARTIFACT- I, II, III, AVR, AVL, AVF, V1-V4 ABNORMAL ECG Electronically Signed On 01-03-2020 8:42:37 CDT by Ariel Carrillo D.O.
[2020-01-03 09:04] LABS: Blood Urea Nitrogen 18 mg/dL (7-17); Calcium 8.9 mg/dL (8.4-10.2); Carbon Dioxide 30 mmol/L (22-30); Chloride 100 mmol/L (98-107); Estimated CRCL calculation 30 ml/min; Estimated Glomerular Filt Rate 60; Glucose 172 mg/dL (65-105); Potassium 4.1 mmol/L (3.4-5.0); Sodium 137 mmol/L (137-145)
[2020-01-03 09:07] LABS: Add Urine Microscopic? YES; Appearance Urine Clear (Clear); Bacteria Urine Trace /hpf; Bilirubin Urine Negative (Negative); Blood Urine Negative (Negative); Color Urine Yellow (Yellow); Glucose Urine UA Negative (Negative); Hyaline Casts Urine 15-19 /lpf; Ketones Urine Negative (Negative); Leukocyte Esterase Ur Negative LEU/UL (Negative); Mucus Urine Rare /lpf; Nitrate Urine Negative (Negative); Protein Urine 3+ mg/dL (Negative); RBC Urine 0-2 /hpf (0-2); Specific Grav Ur 1.016 (1.001-1.035); Urobilinogen Urine Negative mg/dL (<2.0); WBC Urine 0-3 /hpf
[2020-01-03 09:30] LABS: Basophils Percent Auto 0.3 % (0.2-1.2); Eosinophils Absolute Auto 0.1 K/mm3 (0-0.3); Eosinophils Percent Auto 0.6 % (0-4.4); Hematocrit 38.4 % (37.0-47.0); Hemoglobin 11.9 g/dL (12.0-15.0); Immature Granulocyte Absolute 0.03 K/mm3 (0.00-0.031); Immature Granulocyte Percent A 0.4 % (0-0.5); Lymphocytes Absolute Auto 0.66 K/mm3 (0.9-3.2); Lymphocytes Percent Auto 8.4 % (18.3-44.2); Mean Corpuscular Hemoglobin 30.4 pg (26-34); Mean Platelet Volume 10.6 fl (7.4-10.4); Monocytes Absolute Auto 0.7 K/mm3 (0.1-0.6); Monocytes Percent Auto 8.4 % (2.6-8.5); Neutrophils Absolute Auto 6.4 K/mm3 (1.3-6.7); Neutrophils Percent Auto 81.9 % (45.5-73.1); Platelet Count Result 122 k/mm3 (150-375); Red Blood Count 3.92 M/mm3 (4.2-5.4); Red Cell Distribution Width 15.9 % (11.5-14.5); White Blood Count 7.8 K/mm3 (4.5-10.0)
[2020-01-03 09:39] VITALS: O2SAT 95
[2020-01-03 10:10] VITALS: BP 156/85; BP 156/88; BP 165/81; PULSE 82; PULSE 91
[2020-01-03 10:11] VITALS: BP 156/85; PULSE 87; RESP 20; O2SAT 96
--- NOTE | 2020-01-03 11:01 | PC.NURSE ---
[facility] called and JAYDEN Pollack was given report and read all discharge education. All questions answered. Jaki stated that she will arrange ride picker / packer that will come in the next 30mins. Pt's daughter, Micheal, contacted per pt's verbal request and updated of her discharge status. RN will continue to monitor and will await her ride to get to hospital.
--- NOTE | 2020-01-03 11:03 | PC.NURSE ---
[facility] Declined return to [facility] Declined return to [facility] cancelled [facility] has own transport
[2020-01-03 11:37] VITALS: BP 148/78; PULSE 86; RESP 20; TEMP 36.5; O2SAT 98
== END 2020-01-03 11:40 ==
PROVIDERS: Emergency Provider Emergency Medicine; PCP Internal Medicine
DX: S00.03XA Contusion of scalp, initial encounter (principal); I48.91 Unspecified atrial fibrillation; D61.9 Aplastic anemia, unspecified; E11.22 Type 2 diabetes mellitus with diabetic chronic kidney disease; N18.3 Chronic kidney disease, stage 3 (moderate); I50.9 Heart failure, unspecified; I13.0 Hypertensive heart and chronic kidney disease with heart failure and stage 1 through stage 4 chronic kidney disease, or unspecified chronic kidney disease; K21.9 Gastro-esophageal reflux disease without esophagitis; Z86.718 Personal history of other venous thrombosis and embolism; E78.5 Hyperlipidemia, unspecified; K75.81 Nonalcoholic steatohepatitis (NASH); K74.69 Other cirrhosis of liver; I34.0 Nonrheumatic mitral (valve) insufficiency; D73.1 Hypersplenism; D69.6 Thrombocytopenia, unspecified; Z96.649 Presence of unspecified artificial hip joint; W19.XXXA Unspecified fall, initial encounter; R94.31 Abnormal electrocardiogram [ECG] [EKG]
CPT/HCPCS: 36415; 51701; 70450; 72125; 80048; 81001; 85025; 93005; 99284

== ENCOUNTER 2020-02-25 08:57 | Outpatient (CLI) | payer MEDICARE, SELFPAY ==
[2020-02-25] VITALS (7 sets, daily range): BP systolic 142–166; BP diastolic 68–91; PULSE 87–95; RESP 12–22; TEMP 36.9; O2SAT 90–99
--- NOTE | ~2020-02-25 | XR_ITS ---
EXAMINATION: XR chest 1V DATE: 02/25/2020 11:53 INDICATION: Right pleural effusion status post thoracentesis. TECHNIQUE: A single frontal view of the chest was obtained. COMPARISON: Chest single view 11/20/2019 FINDINGS: There is a moderate-sized right pleural effusion. There are airspace opacities at right dawood g base. No pneumothorax. The heart size is normal. IMPRESSION: 1. Moderate-sized right pleural effusion with interval improvement. 2. Airspace opacities at right lung base, consistent with atelectasis or less likely pneumonia. Reviewed, dictated and finalized at location A. IMPRESSION: 1. Moderate-sized right pleural effusion with interval improvement. 2. Airspace opacities at right lung base, consistent with atelectasis or less l ikely pneumonia.
--- NOTE | ~2020-02-25 | US_ITS ---
EXAMINATION: US thoracentesis DATE: 02/25/2020 12:02 INDICATION: pleural effusion TECHNIQUE: The procedure and its risks, benefits, and alternatives were discussed with the patient. P otential risks discussed included bleeding, infection, and pneumothorax. The patient understood the r isks and agreed to proceed. The skin was prepped and draped in sterile fashion. 1% lidocaine was used for local anesthesia. Under ultrasound guidance, a 5 Fr catheter with trochar was advanced into the right pleural effusion. Fluid was aspirated. The catheter was removed, and a dressing was applied. Th ere were no immediate complications. FINDINGS: Ultrasound images demonstrate a right pleural effusion and the catheter within the fluid. IMPRESSION: 1. Successful ultrasound-guided thoracentesis yielding 1000 mL of clear, yellow fluid. Reviewed, dictated and finalized at location A. IMPRESSION: 1. Successful ultrasound-guided thoracentesis yielding 1000 mL of clear, yello w fluid.
[2020-02-25 09:50] LABS: Immature Platelet Fraction Pct 3.9 % (0.9-11.2); Platelet Count Result 137 k/mm3 (150-375)
[2020-02-25 09:58] LABS: Prothrombin Time 12.9 Seconds (11.1-14.7)
--- NOTE | 2020-02-25 12:21 | SUR.PHASEII ---
1155 - pt to op recovery. procedure site with bandaid, dry. pt denies pain. warm blankets given for comfort.
--- NOTE | 2020-02-25 13:44 | SUR.PHASEII ---
1340 - dr. bee called. ok to discharge pt home. iv discontinued. pressure dressing placed.
== END 2020-02-25 08:58 | disposition home or self-care (01) ==
PROVIDERS: Radiology Diagnostic Radiology; PCP Internal Medicine; Visit Provider Nurse Practitioner Family
DX: J90 Pleural effusion, not elsewhere classified (principal); R91.8 Other nonspecific abnormal finding of lung field
CPT/HCPCS: 32555; 36415; 71045; 85049; 85055; 85610

== ENCOUNTER 2020-03-16 11:32 | Outpatient (CLI) | payer MEDICARE, SELFPAY ==
--- NOTE | ~2020-03-16 | CT_ITS ---
EXAMINATION: CT brain wo/w con DATE: 03/16/2020 12:44 INDICATION: Frequent falls. Head injury. TECHNIQUE: Computed tomography (CT) of the head was performed without intravenous contrast. The mA wa s adjusted according to patient size. Iterative reconstruction technique was employed. Exam dose: 10 59.33 mGy-cm total exam DLP. COMPARISON: 01/03/2020 CT head FINDINGS: There is nonspecific diminished attenuation of the cerebral white matter, likely due to chr onic small vessel ischemic changes. There are bilateral carotid siphon internal carotid artery calcif ications as well as bilateral vertebral artery calcifications and basilar artery calcification. No intracranial mass lesion or hemorrhage, midline shift shift or mass effect is evident. No subdural or epidural hematoma. No orbital mass lesion. Small focal area of mucoperiosteal thickening or mucous retention cyst in the posterolateral right sp henoid sinus. The paranasal sinuses and mastoid air cells are otherwise unremarkable. No suspicious bone destruction or fracture of the cranial vault. IMPRESSION: Cerebral atherosclerosis and chronic small vessel ischemic changes of the cerebral white matter No acute intracranial finding Reviewed, dictated and finalized at Location A. Reviewed, dictated and finalized at location A.
[2020-03-16 12:37] LABS: Estimated Glomerular Filt Rate 43
== END 2020-03-16 11:33 | disposition home or self-care (01) ==
PROVIDERS: PCP Internal Medicine; Visit Provider Nurse Practitioner
DX: S09.90XA Unspecified injury of head, initial encounter (principal); X58.XXXA Exposure to other specified factors, initial encounter; I67.2 Cerebral atherosclerosis
CPT/HCPCS: 36415; 70470; Q9967

== ENCOUNTER 2020-03-23 11:29 | Inpatient (IN) | payer MEDICARE, SELFPAY ==
[2020-03-23] VITALS (11 sets, daily range): BP systolic 114–162; BP diastolic 57–93; PULSE 68–97; RESP 16–24; TEMP 36.2–36.8; O2SAT 92–100; BMI 19.5
--- NOTE | ~2020-03-23 | XR_ITS ---
EXAMINATION: XR hip LT min 3V w AP pelvis EXAM DATE: 03/23/2020 15:36 INDICATION: No known recent injury provided at this time. Pain of the left hip. TECHNIQUE: Left hip frontal, crosstable lateral and 'frog-leg' projections for interpretation. Fronta l projection pelvis. Comparison is made to prior examination from 11/16/2019. FINDINGS: Patient has had bilateral hip replacements. Hardware appears in expected position, no perip rosthetic lucency, hardware fracture or dislocation. Bones are osteopenic. Please note that osteopen ia limits sensitivity for detecting fractures by radiographs. There are no acute fractures identified . There is an IVC filter. There are arterial calcifications, arteriosclerosis. There is no significan t interval change. IMPRESSION: 1. Intact bilateral hip arthroplasties. 2. Osteopenia. Reviewed, dictated and finalized at location A.
--- NOTE | ~2020-03-23 | US_ITS ---
EXAMINATION: US thoracentesis DATE: 03/24/2020 13:41 INDICATION: Large right pleural effusion. TECHNIQUE: The procedure and its risks and benefits were discussed with the patient's daughter. Charlene sen risks discussed included bleeding, infection, and pneumothorax. The patient's daughter understoo d the risks and agreed to proceed. The skin was prepped and draped in sterile fashion. 1% lidocaine w as used for local anesthesia. Under ultrasound guidance, a 5 Fr catheter with trochar was advanced in to the large right pleural effusion. Fluid was aspirated. The catheter was removed, and a dressing wa s applied. Shortly following the procedure the patient became unresponsive and COPD was called. I ret urned to the room to see the patient and CPR was initiated. Management of the code was turned over to Dr. Mathews from the emergency department. The patient regained pulse with regular rate and rhythm f ollowing approximately 1 minute of CPR. The patient was returned to the ICU in the company of Dr. Jonnathan butler and the ICU nurses. See PD physician documentation for further detail. FINDINGS: Ultrasound images demonstrate a large right pleural effusion and the catheter within the fluid. Incid entally noted is a small amount of perihepatic ascites. IMPRESSION: 1. Successful ultrasound-guided thoracentesis yielding 1000 mL of clear yellow fluid. 2. Post procedure loss of consciousness. CODE BLUE called and patient received 1 minutes of CPR for r egaining spontaneous pulse and regular rate and rhythm. See ED physician note for further detail of t he code. Reviewed, dictated and finalized at location A. IMPRESSION: 1. Successful ultrasound-guided thoracentesis yielding 1000 mL of clear yellow fluid. 2. Post procedure loss of consciousness. CODE BLUE called and patient received 1 minutes of CPR for regaining spontaneous pulse and regular rate and rhythm. S ED physician note for further detail of the code.
--- NOTE | ~2020-03-23 | XR_ITS ---
EXAMINATION: XR chest 1V portable DATE: 03/23/2020 13:33 INDICATION: Weakness and shortness of breath. TECHNIQUE: frontal view of the chest was obtained. COMPARISON: Chest radiograph dated 02/25/2020 FINDINGS: Opacification of the right mid to lower lung zone consistent with enlarging large right pleural effus ion with associated compressive atelectasis. Left lung is clear. No pulmonary edema, pneumothorax or left pleural effusion. Cardiomediastinal silhouette is normal. IMPRESSION: 1. Increasing large right pleural effusion with associated compressive atelectasis. Underlying pneumo nabila or malignancy not excludable. Reviewed, dictated and finalized at location A. IMPRESSION: 1. Increasing large right pleural effusion with associated compressive atelecta sis. Underlying pneumonia or malignancy not excludable.
--- NOTE | ~2020-03-23 | CT_ITS ---
EXAMINATION: CT brain wo con DATE: 03/23/2020 14:11 INDICATION: Weakness TECHNIQUE: Computed tomography (CT) of the head was performed without intravenous contrast. Sagittal and coronal reconstructions were performed. The mA was adjusted according to patient size. Iterative reconstruction technique was employed. The dose-length product was 1059.33 mGy-cm. COMPARISON: head CT dated 03/16/2020 FINDINGS: Evaluation moderately limited by motion and streak artifact most prominent at the skull base. Small o ld lacunar infarct at the left basal ganglia. No acute intracranial hemorrhage, acute infarction or a bnormal extra axial fluid collection. There is moderate scattered white matter hypoattenuation consis tent with chronic small vessel ischemic disease. Symmetric prominence of the sulci and ventricles con sistent with mild age-appropriate diffuse cerebral volume loss. No mass/mass effect. Changes of bilat eral intraocular lens replacement. The orbits, paranasal sinuses and mastoid air cells are normal. In tracranial calcified cerebral atherosclerosis is noted. IMPRESSION: 1. No acute intracranial process. Evaluation moderately limited by motion artifact. 2. 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 Age-related changes including mild diffuse vo lume loss and moderate scattered white matter hypoattenuation consistent with chronic small vessel is chemic disease. Reviewed, dictated and finalized at location A. IMPRESSION: 1. No acute intracranial process. Evaluation moderately limited by motion artif act. 2. 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 Age-related changes inc luding mild diffuse volume loss and moderate scattered white matter hypoattenua tion consistent with chronic small vessel ischemic disease.
--- NOTE | ~2020-03-23 | US_ITS ---
EXAMINATION:US venous doppler LE BI INDICATION:Leg swelling TECHNIQUE: Multiple grayscale, color flow and Doppler images of the lower extremity deep venous syste ms were obtained and reviewed. COMPARISON:No prior studies for comparison. FINDINGS: The common femoral, superficial femoral and popliteal veins demonstrate normal respiratory variation, augmentation and compressibility. Color flow is also seen within the posterior tibial, pe roneal, greater saphenous and profunda veins. The left greater saphenous vein not visualized. IMPRESSION: 1: No lower extremity deep venous thrombosis. Reviewed, dictated and finalized at location A.
--- NOTE | 2020-03-23 11:47 | ECG_ITS ---
Measurements Intervals [place] Rate: 83 P: [place]: 0 QRS: -11 QRSD: 90 T: 206 QT: 406 QTc: 478 Interpretive Statements ATRIAL FIBRILLATION LOW QRS VOLTAGE IN LIMB LEADS CANNOT RULE OUT SEPTAL INFARCT, AGE INDETERMINATE BORDERLINE ST-T WAVE ABNORMALITY- DIFFUSE LEADS BASELINE ARTIFACT- I, III, AVL, V1-V6 ABNORMAL ECG Electronically Signed On 03-23-2020 12:34:47 CDT by Ariel Carrillo D.O.
[2020-03-23] MEDS: FAMOTIDINE 20 MG/2 ML VIAL IV PUSH ×2 (12:03→21:28)
[2020-03-23] MEDS: SODIUM CHLORIDE 0.9% IV 500 ML 999 ML IV CONT (12:03)
[2020-03-23 12:42] LABS: Add Urine Microscopic? YES; Appearance Urine Clear (Clear); Bacteria Urine Trace /hpf; Bilirubin Urine Negative (Negative); Blood Urine Negative (Negative); Color Urine Yellow (Yellow); Glucose Urine UA Negative (Negative); Hyaline Casts Urine 50+ /lpf; Ketones Urine Trace mg/dL (Negative); Leukocyte Esterase Ur Negative LEU/UL (Negative); Mucus Urine Few /lpf; Nitrate Urine Negative (Negative); Protein Urine 1+ mg/dL (Negative); Specific Grav Ur 1.015 (1.001-1.035); Squamous Epithelial Cell Urine Rare /hpf (Few); WBC Urine 0-3 /hpf
[2020-03-23 13:00] LABS: Alveolar/Arterial O2 Gradient 38.7 mmHg; Base Excess ABG 1.8 mEq/l (+/-2.0); Carboxyhemoglobin 0.8 % THb (0-2.0); Fractional Inspired Oxygen 28 %; HCO3 ABG 28.2 mEq/l (22.0-26.0); Methemoglobin ABG 0.2 %THb (0-1.5); Oxygen Content ABG 15.2 %vol (16.0-22.0); Oxygen Saturation ABG 97.1 % (95.0-100.0); Oxyhemoglobin 95.6 % THb (90.0-100.0); PCO2 ABG 52.7 mmHg (35.0-45.0); PO2 ABG 98.8 mmHg (80.0-100.0); PO2 FiO2 Ratio Arterial Blood 3.53 %; Reduced Hemoglobin 3.4 %THb (0-5.0); Total Hemoglobin 11.2 g/dL (12.0-18.0); pH ABG 7.347 (7.350-7.450)
[2020-03-23 13:01] LABS: Device NASAL CANNULA; Modified Allen's Test Pass; Site Drawn LEFT RADIAL
[2020-03-23 13:04] LABS: Basophils Percent Auto 0.5 % (0.2-1.2); Eosinophils Absolute Auto 0.1 K/mm3 (0-0.3); Eosinophils Percent Auto 0.8 % (0-4.4); Hematocrit 35.3 % (37.0-47.0); Hemoglobin 10.7 g/dL (12.0-15.0); Immature Granulocyte Absolute 0.02 K/mm3 (0.00-0.031); Immature Granulocyte Percent A 0.3 % (0-0.5); Lymphocytes Absolute Auto 0.67 K/mm3 (0.9-3.2); Lymphocytes Percent Auto 10.9 % (18.3-44.2); Mean Corpuscular HGB Conc 30.3 g/dl (32-36); Mean Corpuscular Hemoglobin 30.1 pg (26-34); Mean Corpuscular Volume 99.2 fl (80-100); Monocytes Absolute Auto 0.6 K/mm3 (0.1-0.6); Monocytes Percent Auto 10.4 % (2.6-8.5); Neutrophils Absolute Auto 4.7 K/mm3 (1.3-6.7); Neutrophils Percent Auto 77.1 % (45.5-73.1); Platelet Count Result 175 k/mm3 (150-375); Red Blood Count 3.56 M/mm3 (4.2-5.4); Red Cell Distribution Width 15.9 % (11.5-14.5); White Blood Count 6.2 K/mm3 (4.5-10.0)
[2020-03-23 13:16] LABS: INR 1.1; Prothrombin Time 13.6 Seconds (11.1-14.7)
[2020-03-23 13:17] LABS: Partial Thromboplastin Time 28.6 SECONDS (22.3-36.8)
[2020-03-23 13:19] LABS: Lactic Acid Reflex 1.3 mmol/L (0.7-2.1)
[2020-03-23 13:21] LABS: Alanine Aminotransferase 31 U/L (4-35); Albumin Level 3.9 g/dL (3.5-5.1); Alkaline Phosphatase 225 U/L (38-126); Aspartate Amino Transferase 43 U/L (14-36); Bilirubin,Total 1.3 mg/dL (0.2-1.3); Blood Urea Nitrogen 29 mg/dL (7-17); CRP 4.7 mg/dL (<1.0); Calcium 8.8 mg/dL (8.4-10.2); Carbon Dioxide 31 mmol/L (22-30); Chloride 103 mmol/L (98-107); Estimated CRCL calculation 16 ml/min; Estimated Glomerular Filt Rate 29; Glucose 125 mg/dL (65-105); Lipase 192 U/L (23-300); Potassium 3.4 mmol/L (3.4-5.0); Sodium 142 mmol/L (137-145)
[2020-03-23 13:22] LABS: Creatine Kinase 108 U/L (30-135)
--- NOTE | 2020-03-23 13:22 | PC.NURSE ---
[facility] IN LAB AWARE OF ADDITIONAL LABS.
[2020-03-23 13:32] LABS: Troponin I 0.415 ng/mL (0.000-0.034)
--- NOTE | 2020-03-23 13:33 | PC.NURSE ---
[facility] IN LAB AWARE OF D DIMER , BNP ADD ON.
[2020-03-23 13:34] LABS: Magnesium 2.2 mg/dL (1.6-2.3)
--- NOTE | 2020-03-23 13:34 | ED.GENADULT ---
HPI - General Adult General Chief complaint: Weakness Stated complaint: weak Time Seen by Provider: 03/23/20 11:33 Source: patient, EMS and old records reviewed Mode of arrival: ambulatory Limitations: no limitations History of Present Illness HPI narrative: Patient is an 85-year-old female who presents to emergency department noting weakness that is been present since Monday patient denies any pain injury or trauma or recent illness or other complaints or similar occurrence in the past patient on arrival is in the room lying in no distress denying any pain alert and oriented to person and reason for being in the emergency department patient reportedly lives at an assisted living Related Data Home Medications Medication Instructions Recorded Confirmed atorvastatin 20 mg PO DAILY 09/05/19 03/20/20 aliskiren [Tekturna] 150 mg PO DAILY 11/16/19 03/20/20 famotidine 20 mg PO DAILY 11/16/19 03/20/20 Calcium 500 1,000 mg PO DAILY 11/17/19 03/20/20 cholecalciferol (vitamin D3) 2,000 unit PO DAILY 11/17/19 03/20/20 [Vitamin D3] lorazepam 0.5 mg tablet 0.5 mg PO Q8H PRN tablet 03/10/20 03/20/20 mirtazapine 7.5 mg tablet 7.5 mg PO DAILY 03/10/20 03/20/20 furosemide 40 mg tablet 40 mg PO DAILY tablet 03/17/20 03/20/20 Allergies Allergy/AdvReac Type Severity Reaction Status Date / Time iron Allergy Unknown ANAPHYLAXIS-IRON Verified 03/20/20 10:18 INFUSION lisinopril Allergy Unknown SEVERE Verified 03/20/20 10:18 SWELLING ramipril Allergy Unknown SEVERE Verified 03/20/20 10:18 SWELLING spironolactone Allergy Unknown UNKNOWN Verified 03/20/20 10:18 REACTION MARYSE Inhibitors Allergy Anaphylaxis Verified 03/20/20 10:18 codeine Allergy Rash Verified 03/20/20 10:18 blood thinners AdvReac Mild Other Uncoded 03/20/20 10:18 Review of Systems Review of Systems: All systems reviewed & are unremarkable except as noted in HPI and below PMFSH Past Medical History Medical History A-fib Aplastic anemia Ascites CHF (congestive heart failure) Chronic hypertension CKD (chronic kidney disease) stage 3, GFR 30-59 ml/min Depression Diabetes mellitus Diverticulitis Diverticulosis GERD (gastroesophageal reflux disease) GI bleed History of blood transfusion History of DVT (deep vein thrombosis) History of rectal polyps HLD (hyperlipidemia) 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 Mitral valve regurgitation Pneumonia Reactive depression Shingles Shortness of Breath Thrombocytopenia due to hypersplenism Ulcer Wrist fracture Surgical History Surgical History H/O section H/O: hysterectomy History of appendectomy History of cardiac cath History of colonoscopy History of esophagogastroduodenoscopy (EGD) History of thoracentesis History of tonsillectomy Hx of total hip arthroplasty No pertinent past surgical history S/P IVC filter Family History Family History Mother Cerebrovascular accident Hypertension Mother Carcinoma of colon Family history of pancreatic cancer Father Family history of heart disease in male family member before age 55 Acute myocardial infarction, Onset Age: 65 Family history of cardiovascular disease Sibling Patient's sister is in good health Other Family history of suicide Social History Social History Smoking status: Never smoker Second hand tobacco smoke exposure: No Alcohol intake: never Substance use: never Substance use type: does not use Gender identity (if verbalized by the patient): Female Spiritual care concerns: No Agree to blood products: No Exam Narrative: Exam Narrative: GENERAL: Chronically ill-appearing, well-nourished, and in no acute distress. HEAD: Normocephalic, atraumatic. EYES: PERRLA and EOMI. ENT: Nares pily
[2020-03-23 13:41] LABS: Beta-Hydroxybutyrate/Acetoacetate 1.67 mmol/L (0.02-0.27)
[2020-03-23 13:51] LABS: D Dimer 2.58 ug/mL (<0.48)
[2020-03-23 14:13] LABS: NT Pro B Type Natriuretic Pept 10500 PG/ML (5-100)
--- NOTE | 2020-03-23 14:32 | PC.NURSE ---
Patient's daughter contacted for updates, Micheal Wu [phone]
--- NOTE | 2020-03-23 15:44 | PC.NURSE ---
This patient, Coleen Wu, was admitted to IMU Room 206-01. Patient/family oriented to hospital policies and general routines including ID bracelet, bed and alarms, visiting hours, pain management, procedures, bathroom and other care routines, personal items, smoking policy, room service/diet, and visiting hours. Valuables list has been completed. Information on how to activate the Rapid Response Team has been discussed. Patient/Family are encouraged to report perceived risks to care and to ask questions if they do not understand what they are told or what they should do.
--- NOTE | 2020-03-23 15:54 | PM.CNCAR ---
Assessment and Plan Additional Plan Very frail looking 85-year-old female with: Chronic atrial fibrillation heart rate is well controlled with diltiazem. With respect to her atrial fibrillation she seems to be asymptomatic. Troponin level is elevated there is no clinical or electrocardiographic evidence of an acute coronary syndrome. This patient is not a candidate for nor would be appropriate or prudent to initiate an ischemic workup in response to this. She does have a very large and recurring right pleural effusion I have reviewed the x-rays going back a number of months. I wonder whether a pleurodesis procedure would not be appropriate to consider. I am sure her pulmonology consultants have discussed this with her. This is been attributed to hepatic cirrhosis apparently she carries the diagnosis of CORADO as a likely etiology of this. When it has been tapped it has been proven to be transudative. Sang Guzman MD [facility] History of Present Illness History of Present Illness Consult date/time: Date of service: 03/23/20 15:54 Reason For Visit: Elevated troponin/pleural effusion/acute kidney in Narrative: This is an 85-year-old woman who I have seen in the office in the past because she has chronic atrial fibrillation. I do not believe I have seen her for a may be a couple of years in the office she is admitted today to the hospital and I have been consulted to see her because of elevation of troponin. The patient is in room 206 in IMU she just a short time ago got up to the room and I do not believe any of the other primary team has been in to see her yet. The patient is unable to provide much in the way of history in terms of why she was brought here to the hospital today. According to the ER noted looks 6 she is brought here because of generalized weakness. The patient is extremely weak frail appearing and barely able to verbalize say anything to me but she really is unaware of what was going on and why she was brought to the hospital. Specifically she denies any sort of chest pain or of any kind. Once again she is known to have chronic atrial fibrillation she is not and has not been anticoagulated because the she also has myelodysplastic syndrome and requires relatively frequent transfusions of red cell volume. She also apparently has a history of chronic cirrhosis of the liver any recurrent relatively large right pleural effusion. It looks like this has been tapped by the radiologists here on at least a couple of occasions. Today's chest x-ray demonstrates that it is rather a quite large again. She denies being specifically short of breath. She according to the records has seen pulmonology consultants here in the past. I am not sure if the concept of pleurodesis has ever been discussed significantly with the patient and or the family. She does not have any other cardiovascular complaints. According to the records she takes diltiazem for heart rate control her the rest of her medical regimen consists of atorvastatin Tekturna, aripiprazole famotidine, furosemide and levothyroxine. In the setting of this evaluation a troponin level was done which is measured at 0.4 prompting consultation for us to see her today. I do not appreciate any clinical evidence that would suggest an acute coronary syndrome I do not have a sense of why the troponin level was sampled. Review of Systems Review of Systems: Narrative: Patient is too weak to take to give a meaningful review of systems ROS unobtainable: Yes unobtainable due to medical condition PMFSH Past Medical History Medical History A-fib Aplastic anemia Ascites CHF (congestive heart failure) Chronic hypertension CKD (chronic kidney disease) stage 3, GFR 30-59 ml/min Depression Diabetes mellitus Diverticulitis Diverticulosis GERD (gastroesophageal reflux disease) GI bleed History of blood transfusion History of DVT (deep vein thrombosis)
[2020-03-23 18:41] LABS: Troponin I 0.387 ng/mL (0.000-0.034)
--- NOTE | 2020-03-23 20:45 | PM.IMHP ---
H&P: HPI History of Present Illness Chief complaint: Elevated troponin/pleural effusion/acute kidney in Narrative: Coleen Wu is a 85 year old female who lives in assisted living. To the emergency room today due to weakness. She denies any injury or trauma. She has multiple bruises on her lower extremities. She has had right pleural effusion is had her right lung tapped at least twice 1 L this year so far. Was noted to be 2.58. Her creatinine is 1.7 so they were not able to do a CT a pulmonary at this time. Was noted to be 0.415 and then 0.387. C reactive protein 4.7. BNP 11813. Venous Doppler Were performed no lower extremity DVTs were noted. She has lymphedema to her lower extremities. No acute intracranial process. Evaluation moderately limited by motion artifact. 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 Her last thoracentesis Was 02/25/2020. Were a 1000 mL were drained off. She also had a paracentesis back in November of this year.Patient was given some IV fluids in the emergency room and Pepcid IV. Cardiology was consulted due to her elevated troponins. She denies any chest pain at this time date of service 03/23/2020 Review of Systems Review of Systems: All systems reviewed & are unremarkable except as noted in HPI and below ROS unobtainable: Yes unobtainable due to mental status Constitutional: Constitutional: Reports as per HPI and Reports no additional constitutional complaints Eyes: Eyes: Reports as per HPI and Reports no additional eye complaints ENT: Reports system reviewed and no additional complaints, except as documented and Reports Normal hearing present Cardiovascular: Cardiovascular: Reports no additional cardiovascular complaints Respiratory: Respiratory: Reports no additional respiratory complaints and Reports no additional respiratory complaints Gastrointestinal: Gastrointestinal: Reports as per HPI and Reports no additional gastrointestinal complaints Musculoskeletal: Musculoskeletal: Reports no additional musculoskeletal complaints Integumentary/Breasts: Skin/Breast: Reports system reviewed and no additional complaints, except as docu and Reports as per HPI Neurologic: Reports system reviewed and no additional complaints, except as documented, Reports as per HPI and Reports Normal hearing present Psychiatric: Psychiatric: Reports no additional psychiatric complaints and Reports as per HPI Endocrine: Endocrine: Reports no additional endocrine complaints Hematologic/Lymphatic: Hematologic/Lymphatic: Reports no additional hematologic/lymphatic complaints Allergic/Immunologic: Allergic/Immunologic: Reports no additional allergic/immunologic complaints PMFSH Past Medical History Medical History (Updated 03/23/20 @ 21:11 by Rajni Peace NP) A-fib Aplastic anemia Ascites CHF (congestive heart failure) Chronic hypertension CKD (chronic kidney disease) stage 3, GFR 30-59 ml/min Depression Diabetes mellitus Diverticulitis Diverticulosis GERD (gastroesophageal reflux disease) GI bleed History of abdominal paracentesis History of blood transfusion History of DVT (deep vein thrombosis) History of rectal polyps HLD (hyperlipidemia) 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 Mitral valve regurgitation Pneumonia Reactive depression Shingles Shortness of Breath Thrombocytopenia due to hypersplenism Ulcer Wrist fracture Surgical History Surgical History (Updated 03/23/20 @ 20:55 by Rajni Peace NP) H/O section H/O: hysterectomy History of appendectomy History of cardiac cath History of colonoscopy History of esophagogastroduodenoscopy (EGD) History of thoracentesis At least 2 times History of tonsillectomy Hx of total hip arthroplasty No pertinent past surgical history S/P IVC filter Family History Family History Mother Cerebrovascular accident Hypertension Mother Carcinoma of colon Family hist
[2020-03-23 20:52] LABS: Glucose Point of Care 128 (65-105)
[2020-03-23 21:53] LABS: Troponin I 0.486 ng/mL (0.000-0.034)
[2020-03-23] MEDS: MIRTAZAPINE 7.5 MG TABLET PO (22:00)
[2020-03-24] VITALS (14 sets, daily range): BP systolic 0–134; BP diastolic 0–71; PULSE 0–101; RESP 0–24; TEMP 35.8–36.7; O2SAT 0–100
[2020-03-24 05:55] LABS: Basophils Percent Auto 0.5 % (0.2-1.2); Eosinophils Absolute Auto 0.1 K/mm3 (0-0.3); Eosinophils Percent Auto 0.9 % (0-4.4); Hemoglobin 10.5 g/dL (12.0-15.0); Immature Granulocyte Absolute 0.01 K/mm3 (0.00-0.031); Immature Granulocyte Percent A 0.2 % (0-0.5); Lymphocytes Absolute Auto 0.63 K/mm3 (0.9-3.2); Lymphocytes Percent Auto 11.3 % (18.3-44.2); Mean Platelet Volume 11.2 fl (7.4-10.4); Monocytes Absolute Auto 0.7 K/mm3 (0.1-0.6); Monocytes Percent Auto 12.1 % (2.6-8.5); Neutrophils Absolute Auto 4.2 K/mm3 (1.3-6.7); Platelet Count Result 156 k/mm3 (150-375); Red Cell Distribution Width 15.9 % (11.5-14.5); White Blood Count 5.6 K/mm3 (4.5-10.0)
--- NOTE | 2020-03-24 06:00 | ECHO_ITS ---
Patient Info Name: Coleen Wu Age: 85 years : 1935 Gender: Female Ht: 62 in Wt: 107 lbs BSA: 1.45 m2 HR: 97 bpm BP: 108 / 51 mmHg Heart Rhythm: Atrial Fibrillation Technical Quality: Good Exam Date: 03/24/2020 10:59 AM Exam Location: [facility] Patient Status: Inpatient Admit Date: 03/23/2020 Staff Ordering Physician: Teodoro Vargas PA-C Switch Repairer: Aris Lewis RDCS Attending Provider: Ashwini Evans PA-C Referring Physician: Sam WEATHERS; Exam Type: CA echo doppler color flow Study Info Indications R06.02 - Shortness of breath Complete two-dimensional, color flow and Doppler transthoracic echocardiogram is performed. History/Risk Factors SOB; CHF w/ BNP 10.5k, Afib, DM2, HTN, CORADO. Summary 1. Normal LV size, sigmoid hypertrophy, variable contractility due to atrial fibrillation, overall LV systolic function relatively preserved, EF about 55-60%. Indeterminate diastolic function. Anteroseptal and anterior wall hypokinesis. Moderate left atrial enlargement. Mild mitral annular calcification, mild MR. Aortic valve sclerosis, mild stenosis, V max 1.7 m/sec, mean gradient 5.5 mmHg. Mild TR, RVSP 31 mmHg. Left Ventricle Left ventricular chamber dimension is normal. Left ventricular systolic function is normal, estimated at 55-60%. There is no increased left ventricular wall thickness. Left ventricular septal wall motion is normal. The left ventricular diastolic function is normal. Right Ventricle Right ventricular chamber dimension is normal. Right ventricular systolic function is normal. Left Atria Left atrial chamber dimension is moderately enlarged. Right Atria Right atrial chamber dimension is normal. Aortic Valve The aortic valve is trileaflet. There is mild aortic valve sclerosis. There is mild aortic valve stenosis with a peak velocity of 171 cm/s, mean gradient of 6 mmHg, and aortic valve area of 1.2 cm2. There is trace aortic valve regurgitation. Pulmonic Valve The pulmonic valve is normal. There is mild pulmonic regurgitation. Mitral Valve There is mild mitral valve regurgitation. There is mild mitral valve calcification. Tricuspid Valve The tricuspid valve leaflets are normal. There is trace tricuspid valve regurgitation. No pulmonary hypertension, estimated pulmonary arterial systolic pressure is 31 mmHg. Pericardium/Pleural The pericardium appears normal. There is no pericardial effusion. Aorta The aortic root size at the sinus of Valsalva is normal. The prox ascending aorta size is normal. Left Ventricular Outflow Tract Name Value Normal LVOT 2D LVOT Diameter 1.7 cm LVOT Doppler LVOT Peak Gradient 3 mmHg LVOT Mean Gradient 1 mmHg LVOT VTI 14 cm LVOT VTI/AV VTI Ratio 0.5 LVOT Stroke Volume 33 ml LVOT CO 3.1 l/min LVOT CI 2.1 l/min/m2 Mitral Valve
[2020-03-24] MEDS: LEVOTHYROXINE SODIUM 112 MCG TABLET PO (06:12)
[2020-03-24 06:20] LABS: Alanine Aminotransferase 29 U/L (4-35); Albumin Level 3.5 g/dL (3.5-5.1); Alkaline Phosphatase 216 U/L (38-126); Aspartate Amino Transferase 46 U/L (14-36); Bilirubin,Total 1.2 mg/dL (0.2-1.3); Blood Urea Nitrogen 30 mg/dL (7-17); CRP 4.4 mg/dL (<1.0); Calcium 8.6 mg/dL (8.4-10.2); Carbon Dioxide 29 mmol/L (22-30); Chloride 107 mmol/L (98-107); Estimated CRCL calculation 21 ml/min; Estimated Glomerular Filt Rate 36; Glucose 103 mg/dL (65-105); Magnesium 2.2 mg/dL (1.6-2.3); Potassium 3.9 mmol/L (3.4-5.0); Sodium 142 mmol/L (137-145)
[2020-03-24 07:24] LABS: Free T4 Free Thyroxine Reflex 1.09 ng/dL (0.78-2.19)
[2020-03-24 07:44] LABS: Glucose Point of Care 103 (65-105)
[2020-03-24] MEDS: ATORVASTATIN 20 MG TABLET PO (09:55)
[2020-03-24] MEDS: FUROSEMIDE 40 MG TABLET PO (09:55)
[2020-03-24] MEDS: FAMOTIDINE 20 MG/2 ML VIAL IV PUSH (09:55)
[2020-03-24] MEDS: ARIPIPRAZOLE 5 MG TABLET PO (09:55)
[2020-03-24] MEDS: FLUOXETINE HCL 20 MG CAP 40 MG PO (09:55)
[2020-03-24] MEDS: CHOLECALCIFEROL 1,000 UNIT TABLET 2000 UNITS PO (09:55)
[2020-03-24] MEDS: POTASSIUM CHLORIDE 10 MEQ TABLET.ER PO (09:56)
[2020-03-24 10:14] LABS: Total Triiodothyronine (T3) 0.52 NG/ML (0.97-1.69)
--- NOTE | 2020-03-24 10:31 | PM.PNCARD ---
Progress Note: A&P Assessment and Plan (1) Pleural effusion: Code(s): J90 - Pleural effusion, not elsewhere classified Status: Acute Assessment and Plan: Patient has recurrent pleural effusion, and scheduled to undergo repeat thoracentesis. Recommend pulmonology evaluation and consider pleurodesis for recurrent pleural effusion. (2) A-fib: Qualifiers: Atrial fibrillation type: unspecified Qualified Code(s): I48.91 - Unspecified atrial fibrillation Code(s): I48.91 - Unspecified atrial fibrillation Status: Chronic Assessment and Plan: Rate control with diltiazem. Has not been deemed to be a candidate for anticoagulation due to anemia. Recommend to discontinue aliskaren. Overall prognosis is guarded. Address code status. Subjective Date/time seen: 03/24/20 10:31 Date of service: 03/24/2020 Chief complaint: Shortness of breath Interval history-patient is somnolent, and unable to provide detailed medical information. She has been short of breath. On telemetry, she is in atrial fibrillation with heart rates in 90s to early 100s. Exam Const: Other: Somnolent, HENMT: Head: normocephalic and atraumatic Ears: external ears normal General nose exam: Normal external nose present and no epistaxis Eyes: EOM: EOMs intact bilaterally (Eyes are closed) Neck: Neck: normal visual inspection, supple and no JVD Thyroid: thyroid normal Carotids: normal carotid upstroke Resp: Effort & Inspection: decreased respiratory effort and respiratory distress Cardio: Jugular venous distension: JVD Rhythm: abnormal rhythm Heart sounds: S1 normal heart sound present and S2 normal heart sound present Other: Irregular rhythm GI: Inspection: normal to inspection GI Palp: No abdominal tenderness Auscultation: normal bowel sounds Skin: Other: no rash on exposed areas, no cyanosis Neuro: Cranial nerves: Yes Equal, round and reactive pupils present and Yes Normal hearing present Other: alert, oriented, no major focal deficits on gross neurological examination Extrem: Other: no edema, no cyanosis, no major deformities Psych: Other: Slightly agitated Objective Data Vital Signs Vital Signs: Vital Signs - 24 hr 03/23/20 11:29 03/23/20 12:16 03/23/20 12:34 Temperature 36.8 C Pulse Rate 68 93 86 Respiratory Rate 19 16 Blood Pressure 148/81 H 162/89 H Pulse Oximetry 98 99 06/08/20 13:18 03/23/20 15:13 03/23/20 15:45 Temperature 36.2 C L Pulse Rate 92 86 90 Respiratory Rate 19 18 24 H Blood Pressure 137/78 128/77 125/66 Pulse Oximetry 98 98 100 03/23/20 16:00 03/23/20 18:00 03/23/20 20:00 Temperature 36.2 C L Pulse Rate 87 91 78 Respiratory Rate 20 Blood Pressure 147/93 H Pulse Oximetry 92 03/23/20 22:00 03/23/20 23:29 03/24/20 00:00 Temperature 36.6 C Pulse Rate 90 97 88 Respiratory Rate 18 Blood Pressure 114/57 L Pulse Oximetry 97 03/24/20 02:00 03/24/20 03:55 03/24/20 04:00 Temperature 36.7 C Pulse Rate 87 86 96 Respiratory Rate 18 Blood Pressure 108/51 L Pulse Oximetry 97 03/24/20 05:57 03/24/20 08:29 03/24/20 09:20 Temperature 35.8 C L Pulse Rate 93 97 Respiratory Rate 16 Blood Pressure 118/71 Pulse Oximetry 100 93 Intake/Output Intake/Output: Intake & Output 03/21/20 03/22/20 03/23/20 03/24/20 23:59 23:59 23:59 23:59 Intake Total 500 Balance 500 Meds/Results Medications: Active Medications Generic Name Dose Route Start Last Admin Trade Name Freq PRN Reason Stop Dose Admin Aripiprazole 5 mg 03/24/20 09:00 03/24/20 09:55 Abilify PO 5 mg DAILY LOVE Administration Atorvastatin Calcium 20 mg 03/24/20 09:00 03/24/20 09:55 Lipitor PO 20 mg DAILY LOVE Administration Calcium Carbonate 1,000 mg 03/24/20 09:00 03/24/20 09:56 Oscal 500 Mg PO 1,000 mg DAILY LOVE Administration Dextrose 12.5 gm 03/23/20 20:43 Dextrose 50% Syringe IV PUSH PRN P
[2020-03-24 11:09] LABS: Glucose 109 mg/dL (65-105); Lactate Dehydrogenase 890 U/L (313-618)
[2020-03-24 11:39] LABS: Glucose Point of Care 118 (65-105)
--- NOTE | 2020-03-24 13:30 | PC.NURSE ---
1300 Patient's heart rate dropped into the 40s. This RN went to US to check on patient. Patient laying on side. No pulse palpated and CPR began. See code sheet for further assessment. Daughter, Karen, called at 1313 and made aware of the situation that occurred. She stated, I thought she was a DNR. She stated to not intubate her and let her be comfortable.
[2020-03-24 13:32] LABS: pH Pleural Fluid 7.448 (7.210-7.500)
--- NOTE | 2020-03-24 13:47 | ED.GENADULT ---
HPI - General Adult General Chief complaint: Weakness Stated complaint: weak Time Seen by Provider: 03/23/20 11:33 Source: patient, EMS and old records reviewed Mode of arrival: ambulatory Limitations: no limitations Related Data Home Medications Medication Instructions Recorded Confirmed atorvastatin 20 mg PO DAILY 09/05/19 03/23/20 aliskiren [Tekturna] 150 mg PO DAILY 11/16/19 03/23/20 famotidine 20 mg PO DAILY 11/16/19 03/23/20 calcium carbonate [Calcium 500] 1,000 mg PO DAILY #0 11/17/19 03/23/20 cholecalciferol (vitamin D3) 2,000 unit PO DAILY 11/17/19 03/23/20 [Vitamin D3] lorazepam 0.5 mg tablet 0.5 mg PO Q8H PRN tablet 03/10/20 03/23/20 mirtazapine 7.5 mg tablet 7.5 mg PO DAILY 03/10/20 03/23/20 furosemide 40 mg tablet 40 mg PO DAILY tablet 03/17/20 03/23/20 Allergies Allergy/AdvReac Type Severity Reaction Status Date / Time aliskiren Allergy Severe Anaphylactic Verified 03/23/20 17:07 Shock iron Allergy Unknown ANAPHYLAXIS-IRON Verified 03/23/20 17:07 INFUSION lisinopril Allergy Unknown SEVERE Verified 03/23/20 17:07 SWELLING ramipril Allergy Unknown SEVERE Verified 03/23/20 17:07 SWELLING spironolactone Allergy Unknown UNKNOWN Verified 03/23/20 17:07 REACTION MARYSE Inhibitors Allergy Anaphylaxis Verified 03/23/20 17:07 codeine Allergy Rash Verified 03/23/20 17:07 blood thinners AdvReac Mild Other Uncoded 03/23/20 17:07 PMFSH Past Medical History Medical History (Updated 03/23/20 @ 21:11 by Rajni Peace NP) A-fib Aplastic anemia Ascites CHF (congestive heart failure) Chronic hypertension CKD (chronic kidney disease) stage 3, GFR 30-59 ml/min Depression Diabetes mellitus Diverticulitis Diverticulosis GERD (gastroesophageal reflux disease) GI bleed History of abdominal paracentesis History of blood transfusion History of DVT (deep vein thrombosis) History of rectal polyps HLD (hyperlipidemia) 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 Mitral valve regurgitation Pneumonia Reactive depression Shingles Shortness of Breath Thrombocytopenia due to hypersplenism Ulcer Wrist fracture Surgical History Surgical History (Updated 03/23/20 @ 20:55 by Rajni Peace NP) H/O section H/O: hysterectomy History of appendectomy History of cardiac cath History of colonoscopy History of esophagogastroduodenoscopy (EGD) History of thoracentesis At least 2 times History of tonsillectomy Hx of total hip arthroplasty No pertinent past surgical history S/P IVC filter Family History Family History Mother Cerebrovascular accident Hypertension Mother Carcinoma of colon Family history of pancreatic cancer Father Family history of heart disease in male family member before age 55 Acute myocardial infarction, Onset Age: 65 Family history of cardiovascular disease Sibling Patient's sister is in good health Other Family history of suicide Social History Social History (Updated 03/23/20 @ 20:56 by Rajni Peace NP) Social History: The patient resides at [facility]. According to the demographic she is . The patient tells me she has 2 daughters. She is retired. She said she has never smoked but she has been around family members to half. Smoking status: Unknown if ever smoked Second hand tobacco smoke exposure: No Alcohol intake: never Substance use: never Substance use type: does not use Gender identity (if verbalized by the patient): Female Spiritual care concerns: No Agree to blood products: No Course Course Emergency Course: VALORIE ZHANG called overhead. Responded to patient and ultrasound with CPR in progress. The patient been having a thoracentesis. At that time patient was hooked up to a awake overnight monitor rhythm check was performed and the patient after approximately 1 minute of CPR and had return to a regular rate and rhythm pulse was obtained. Patient was mi
--- NOTE | 2020-03-24 13:48 | PC.NURSE ---
Patient arrived to ICU 11 at 1313, oxygen on, tele on, report given from Betsy CARPENTER
--- NOTE | 2020-03-24 13:57 | PCOTNOTE ---
OT evaluation withheld this date due to patient had a decline in medical status and was transferred from IMU to ICU. Will follow.
--- NOTE | 2020-03-24 15:08 | PM.DS ---
DS: Admitting Diagnosis Admitting Diagnosis Admitting Diagnosis: Muscle weakness (generalized) DS: Discharge Diagnosis Discharge Diagnosis (1) Cardiac arrest: Code(s): I46.9 - Cardiac arrest, cause unspecified Status: Acute (2) Generalized muscle weakness: Code(s): M62.81 - Muscle weakness (generalized) Status: Acute (3) Reactive depression: Code(s): F32.9 - Major depressive disorder, single episode, unspecified Status: Acute (4) Type 2 diabetes mellitus with stage 3 chronic kidney disease: Code(s): E11.22 - Type 2 diabetes mellitus with diabetic chronic kidney disease; N18.3 - Chronic kidney disease, stage 3 (moderate) Status: Acute (5) Pleural effusion, right: Code(s): J90 - Pleural effusion, not elsewhere classified Status: Acute (6) Congestive heart failure, unspecified: Code(s): I50.9 - Heart failure, unspecified Status: Acute (7) Hypothyroidism: Code(s): E03.9 - Hypothyroidism, unspecified Status: Acute (8) Aplastic anemia: Code(s): D61.9 - Aplastic anemia, unspecified Status: Acute (9) CKD (chronic kidney disease) stage 3, GFR 30-59 ml/min: Code(s): N18.3 - Chronic kidney disease, stage 3 (moderate) Status: Acute (10) A-fib: Qualifiers: Atrial fibrillation type: unspecified Qualified Code(s): I48.91 - Unspecified atrial fibrillation Code(s): I48.91 - Unspecified atrial fibrillation Status: Chronic (11) Essential hypertension: Code(s): I10 - Essential (primary) hypertension Status: Acute (12) HLD (hyperlipidemia): Code(s): E78.5 - Hyperlipidemia, unspecified Status: Chronic DS: Summary Hospital Course Reason for hospitalization: Generalized weakness Hospital Course: Patient is an 85-year-old female presented emergency room for failure to thrive and generalized weakness. The patient's daughter, Karen the patient has not been eating for weeks and seems very unmotivated and does not get out of bed. She occasionally has shortness of breath and has a chronic pleural effusion that she gets drain quarterly. She was brought to the emergency room for this generalized weakness. Her Chem panel and CBC did not show any significant abnormalities. She did have elevated troponins and saw Cardiology why she was here. She had an echo which showed some hypokinesis for the normal EF. Chest x-ray showed worsening pleural effusion and a thoracentesis was ordered. Immediately after the procedure, the patient started having agonal breathing and went into cardiac arrest. CPR was initiated as she was initially a full code and after about 1 minutes of CPR she returned to normal sinus rhythm with a pulse. At this time, she was minimally responsive, clenched, with a substance coming out of her mouth which was thought to be a leftover pill. Patient was bagged until she returned to the ICU and we contacted her daughter who decided she wanted her to be a DNR. The patient was placed on oxygen and comfort measures were put in place. After about 20 minutes, the patient was able to answer my questions and said she was not in any pain. I called the daughter Karen who decided to pursue hospice. The patient was discharged to hospice care Status at Discharge Functional status at discharge: bed bound Overall status at discharge: patient is progressing back to baseline Time Spent with Patient Time attestation: Total time spent providing and/or coordinating discharge services:45 min Time spent: Greater than 30 minutes Exam Narrative: Exam Narrative: General: Frail elderly patient nonresponsive receiving CPR HEENT: Jaw cleansed, pupils reactive Neck: No rigidity Neuro: Not alert or oriented CV:No pulse initially after 1 min of CPR she did return to NSR with a strong pulse. Resp:Decreased respiratory rate, of 6. Patient was bagged during the code. Abd: Soft, non disten
[2020-03-24 15:50] LABS: Appearance Pleural Fluid Hazy (Clear); Color Pleural Fluid Yellow (Colorless); Lymphocytes Pleural Fluid 18 %; Monocytes Pleural Fluid 49 %; Neutrophils Pleural Fluid 2 % (0-25); Nucleated Cell Pleural Fluid 112 /uL (0-1000); Pleural fluid source Pleural fluid; RBC Pleural Fluid 0 /uL (0-0)
[2020-03-24 15:51] LABS: Macrophages Pleural Fluid 31 %
[2020-03-27 06:26] LABS: Glucose Pleural Fluid 127 mg/dL; LDH Pleural Fluid 96 U/L; Total Protein Pleural Fluid <3.0 g/dL
== END 2020-03-24 15:05 | disposition hospice, inpatient (51) | DRG 433 ==
LOC: ANHED 14:30 → ANHIMU 15:02 → ANHICU 03-26 12:05 → ANHIMU 03-26 12:05
PROVIDERS: Emergency Medicine Emergency Medical Services; Nurse Practitioner; Physician Assistant; Admitting Provider Internal Medicine; Emergency Provider Emergency Medicine; PCP Internal Medicine; Visit Provider Internal Medicine
DX: K74.69 Other cirrhosis of liver (principal); J91.8 Pleural effusion in other conditions classified elsewhere; I97.121 Postprocedural cardiac arrest following other surgery; D61.9 Aplastic anemia, unspecified; Z68.1 Body mass index [BMI] 19.9 or less, adult; N17.9 Acute kidney failure, unspecified; I48.20 Chronic atrial fibrillation, unspecified; F32.9 Major depressive disorder, single episode, unspecified; M62.81 Muscle weakness (generalized); E11.22 Type 2 diabetes mellitus with diabetic chronic kidney disease; N18.3 Chronic kidney disease, stage 3 (moderate); I50.9 Heart failure, unspecified; I12.9 Hypertensive chronic kidney disease with stage 1 through stage 4 chronic kidney disease, or unspecified chronic kidney disease; E03.9 Hypothyroidism, unspecified; E78.5 Hyperlipidemia, unspecified; R62.7 Adult failure to thrive; K21.9 Gastro-esophageal reflux disease without esophagitis; K75.81 Nonalcoholic steatohepatitis (NASH); I34.0 Nonrheumatic mitral (valve) insufficiency; D46.9 Myelodysplastic syndrome, unspecified; Z86.718 Personal history of other venous thrombosis and embolism; Z90.710 Acquired absence of both cervix and uterus; Z66 Do not resuscitate
CPT/HCPCS: 32555; 36415; 36600; 51701; 70450; 71045; 73502; 80053; 81001; 82010; 82375; 82550; 82805; 82945; 82947; 83050; 83605; 83615; 83690; 83735; 83880; 83986; 84100; 84155; 84157; 84439; 84443; 84480; 84484; 85025; 85380; 85610; 85730; 86140; 87040; 87205; 88104; 88108; 88305; 89051; 93005; 93306; 93970; 96361; 96374; 99285; A9270; J7040

== ENCOUNTER 2020-03-24 15:06 | HOS | payer OTHER, MEDICARE, SELFPAY ==
[2020-03-24 15:33] VITALS: BMI 19.5
[2020-03-24 15:40] VITALS: PULSE 84; RESP 19; O2SAT 96
--- NOTE | 2020-03-24 16:48 | PM.IMHP ---
H&P: HPI History of Present Illness Chief complaint: CHF Narrative: Coleen Wu is a 85 year old female was brought to 03/23 due to increased sob and generalized weakness. Recurrent right pleural effusion. Known cirrhosis and diastolic chf. SHANT with creatinine 1.7 upon admission. Venous doppler negative. Hypoxemic. Placed on 3 LPM oxygen. U/s guided thoracentesis 03/24 with 1 L removed. LOC with agonal breathing immediately after procedure. CPR initiated and when monitor placed after about one minute had NSR. Daughter contacted and informed staff that patient was DNR. She opted for comfort care only. Prior to admission, pt had become w/c bound due to JAMES and generalized weakness. Ox2. Required assistance with all ADLs. 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 Mitral valve regurgitation Pneumonia Reactive depression Shingles Shortness of Breath Thrombocytopenia due to hypersplenism Ulcer Wrist fracture Surgical History Surgical History H/O section H/O: hysterectomy History of appendectomy History of cardiac cath History of colonoscopy History of esophagogastroduodenoscopy (EGD) History of thoracentesis At least 2 times History of tonsillectomy Hx of total hip arthroplasty No pertinent past surgical history S/P IVC filter Family History Family History Mother Cerebrovascular accident Hypertension Mother Carcinoma of colon Family history of pancreatic cancer Father Family history of heart disease in male family member before age 55 Acute myocardial infarction, Onset Age: 65 Family history of cardiovascular disease Sibling Patient's sister is in good health Other Family history of suicide Social History Social History (Updated 03/24/20 @ 17:15 by Oz Recinos MD) Social History: The patient resides at [facility]. . Has 2 daughters. Nonsmoker. Retired. Smoking status: Unknown if ever smoked Second hand tobacco smoke exposure: No Alcohol intake: never Substance use: never Substance use type: does not use Living arrangements: assisted living Occupation/Education: retired Gender identity (if verbalized by the patient): Female Spiritual care concerns: No Agree to blood products: No Meds Home Medications and Allergies Home Medications Medication Instructions Recorded Confirmed Type atorvastatin 20 mg PO DAILY 09/05/19 03/24/20 History levothyroxine 112 mcg tablet 112 mcg PO DAILY #90 tablet 09/16/19 03/24/20 Rx aliskiren [Tekturna] 150 mg PO DAILY 11/16/19 03/24/20 History famotidine 20 mg PO DAILY 11/16/19 03/24/20 History calcium carbonate [Calcium 500] 1,000 mg PO DAILY #0 11/17/19 03/24/20 History cholecalciferol (vitamin D3) 2,000 unit PO DAILY 11/17/19 03/24/20 History [Vitamin D3] potassium chloride 10 mEq 10 meq PO DAILY #90 tablet 12/24/19 03/24/20 Rx tablet,extended release diltiazem HCl 240 mg capsule,24 240 mg PO DAILY #90 cap 12/25/19 03/24/20 Rx hr,extended release fluoxetine 40 mg capsule 40 mg PO DAILY #30 cap 03/10/20 03/24/20 Rx lorazepam 0.5 mg tablet 0.5 mg PO Q8H PRN tablet 03/10/20 03/24/20 History mirtazapine 7.5 mg tablet 7.5 mg PO DAILY 03/10/20 03/24/20 History aripiprazole 5 mg tablet 5 mg PO DAILY #30 tablet 03/17/2003/24
--- NOTE | 2020-03-24 17:24 | PC.NURSE ---
Patient downgraded to hospice, assigned bed to 349. Report given to JAYDEN Platt. Patient traveled by bed with medications handed to RN at 1720.
[2020-03-24] MEDS: LORAZEPAM INJ 2 MG/ML VIAL 1 MG IV PUSH (20:23)
[2020-03-25 09:51] VITALS: O2SAT 92
--- NOTE | 2020-03-25 17:32 | PM.IMPN ---
Progress Note: A&P Assessment and Plan (1) Palliative care by specialist: Code(s): Z51.5 - Encounter for palliative care Status: Acute Assessment and Plan: At the time of admission, she was restless and dyspneic, requiring continuous IV morphine for symptom control. Morphine 0.5mg/hr and 1mg q 2h prn. Remainder of prn palliative regimen as ordered. (2) Pleural effusion: Code(s): J90 - Pleural effusion, not elsewhere classified Status: Acute (3) Acute kidney injury: Code(s): N17.9 - Acute kidney failure, unspecified Status: Acute (4) Generalized muscle weakness: Code(s): M62.81 - Muscle weakness (generalized) Status: Acute (5) Hypothyroidism: Code(s): E03.9 - Hypothyroidism, unspecified Status: Acute (6) Unspecified cirrhosis of liver: Qualifiers: Hepatic cirrhosis type: unspecified hepatic cirrhosis Ascites presence: unspecified Qualified Code(s): K74.60 - Unspecified cirrhosis of liver Code(s): K74.60 - Unspecified cirrhosis of liver Status: Acute (7) Congestive heart failure, unspecified: Code(s): I50.9 - Heart failure, unspecified Status: Acute (8) Essential hypertension: Code(s): I10 - Essential (primary) hypertension Status: Acute (9) Type 2 diabetes mellitus with stage 3 chronic kidney disease: Code(s): E11.22 - Type 2 diabetes mellitus with diabetic chronic kidney disease; N18.3 - Chronic kidney disease, stage 3 (moderate) Status: Acute (10) CKD (chronic kidney disease) stage 3, GFR 30-59 ml/min: Code(s): N18.3 - Chronic kidney disease, stage 3 (moderate) Status: Acute (11) Anemia: Qualifiers: Anemia type: unspecified type Qualified Code(s): D64.9 - Anemia, unspecified Code(s): D64.9 - Anemia, unspecified Status: Acute (12) A-fib: Qualifiers: Atrial fibrillation type: unspecified Qualified Code(s): I48.91 - Unspecified atrial fibrillation Code(s): I48.91 - Unspecified atrial fibrillation Status: Chronic Subjective Date/time seen: 03/25/20 17:15 Interval history: Sleeping most of the day. Opened eyes intermittently and nodded yes or no to family. Review of Systems Review of Systems: ROS unobtainable: Yes unobtainable due to medical condition Exam Narrative: Exam Narrative: HEENT: PERRL, sclerae nonicteric, pharyngeal mucosa pink and intact NECK: No JVD CHEST: Clear to auscultation on left. Decrease BS and dullness to percussion RLL. Mildly tachypneic. HEART: NL S1/S2, regular, no murmur ABDOMEN: BS+, soft, nontender, no mass, no bruits EXTREMITIES: No cyanosis, edema, or clubbing NEUROLOGIC: CN intact and symmetric to inspection. MUSCULOSKELETAL: Tone and strength symmetric. PSYCH: Drowsy. Arouses to noxious stimuli Objective Data Vital Signs Vital Signs: Vital Signs - 24 hr 03/25/20 09:51 Pulse Oximetry 92 Intake/Output Intake/Output: Intake & Output 03/22/20 03/23/20 03/24/20 03/25/20 23:59 23:59 23:59 23:59 Intake Total 21.7 Balance 21.7 Meds/Results Medications: Active Medications Generic Name Dose Route Start Last Admin Trade Name Freq PRN Reason Stop Dose Admin Artificial Tears 1 drop 03/25/20 14:10 Artificial Tears EACH EYE TID PRN Dry Eye(s) Bisacodyl 10 mg 03/24/20 16:26 Dulcolax Suppository RECTAL QAM PRN Constipation Glycopyrrolate 0.1 mg 03/24/20 16:27 Robinul Inj IV PUSH Q4H PRN SECRETIONS Morphine Sulfate 50 mg/ Sodium 100 mls @ 1 mls/hr 03/24/20 16:30 03/25/20 17:02 Chloride IV CONT 0.5 mg/hr .Q24H LOVE 1 mls/hr Administration 0.5 MG/HR Lorazepam 1 mg 03/24/20 16:29 03/24/20 20:23 Ativan Inj IV PUSH 1 mg Q4H PRN Administration Anxiety Morphine Sulfate 1 mg 03/24/20 16:28 Morphine Sulfate Inj IV PUSH Q2H PRN Pain Prochlorperazine Edisyl
[2020-03-25 20:00] VITALS: PULSE 84; RESP 19; O2SAT 92
[2020-03-25] MEDS: MORPHINE SULFATE 2 MG/ML INJ 1 MG IV PUSH (20:48)
[2020-03-25] MEDS: LORAZEPAM INJ 2 MG/ML VIAL 1 MG IV PUSH (21:21)
--- NOTE | 2020-03-26 01:53 | PC.NURSE ---
PTs daughter approached RN stated pt hasnt moved in a while. RN checked pt, no HR found, charge and house sup notified.
--- NOTE | 2020-04-07 16:39 | PM.DDS ---
Discharge Sum: Prov Provider Primary care physician: Bob Jaramillo DO Admitting provider: Oz Recinos MD Discharge Sum: Diag Contributing Factors (1) Pleural effusion: (2) Congestive heart failure, unspecified: (3) Cardiac arrest: (4) Pleural effusion, right: (5) Unspecified cirrhosis of liver: (6) CKD (chronic kidney disease) stage 3, GFR 30-59 ml/min: (7) Anemia: (8) A-fib: (9) Acute renal failure: Discharge Sum: Summary Date and Time Date of admission: 03/24/20 15:06 Summary Details: Admitted to inpatient hospice service after cardiopulmonary resuscitation. Daughter (POA) confirmed that patient was DNR and was to receive comfort measures only. Medications were titrated to comfort and she peacefully. Additional Data Attending physician: Oz Recinos MD
== END 2020-03-25 23:10 | disposition expired | DRG 433 ==
LOC: ANHICU 16:13 → ANH3MED 17:24
PROVIDERS: Admitting Provider Internal Medicine; PCP Internal Medicine; Visit Provider Internal Medicine
DX: K74.60 Unspecified cirrhosis of liver (principal); I13.0 Hypertensive heart and chronic kidney disease with heart failure and stage 1 through stage 4 chronic kidney disease, or unspecified chronic kidney disease; I48.20 Chronic atrial fibrillation, unspecified; N17.9 Acute kidney failure, unspecified; I50.32 Chronic diastolic (congestive) heart failure; J90 Pleural effusion, not elsewhere classified; Z51.5 Encounter for palliative care; E11.22 Type 2 diabetes mellitus with diabetic chronic kidney disease; N18.3 Chronic kidney disease, stage 3 (moderate); E03.9 Hypothyroidism, unspecified; K21.9 Gastro-esophageal reflux disease without esophagitis; E78.5 Hyperlipidemia, unspecified; K75.81 Nonalcoholic steatohepatitis (NASH); D64.9 Anemia, unspecified; I34.0 Nonrheumatic mitral (valve) insufficiency; Z86.718 Personal history of other venous thrombosis and embolism; Z90.710 Acquired absence of both cervix and uterus; Z66 Do not resuscitate
CPT/HCPCS: A9270; J2060; J2270